=== PATIENT | female | born 1960 | race Caucasian/White ===

== ENCOUNTER 2016-12-19 08:55 | Emergency (ER) | payer OTHER ==
[~2016-12-19] VITALS: Ht 157.5 cm; Wt 74.8 kg
[~2016-12-19 08:55] MED LIST: NAPR220C4 PO; PANT40TA3 PO
[2016-12-19] MEDS ORDERED: IV NORMAL SALINE 1000ML BAG 1,000 ML IV SCH (09:49)
[2016-12-19] MEDS ORDERED: MORPHINE SULFATE 4 MG/ML DISP.SYRIN. IV/SQ PRN (10:00)
[2016-12-19] MEDS ORDERED: IOHEXOL 300 MG/ML 75 ML VIAL IV ONE (10:00)
[2016-12-19] MEDS ORDERED: FAMOTIDINE 20 MG/2 ML VIAL IVP ONE (10:00)
[2016-12-19] MEDS ORDERED: ONDANSETRON PF 4 MG/2 ML VIAL. IV ONE (10:00)
[2016-12-19 10:01] LABS: BILIRUBIN,URINE NEGATIVE (NEG); GLUCOSE,URINE NEGATIVE (NEG); NITRITE,URINE NEGATIVE (NEG); PH,URINE 6.5; PROTEIN,URINE NEGATIVE (NEG-TRACE); UROBILINOGEN,URINE 0.2 mg/dL (0.2 mg/dL)
--- NOTE | 2016-12-19 10:01 | PHYS DOC ---
Past Medical History Past Medical History: No Pertinent History Past Surgical History: Appendectomy, Cholecystectomy Alcohol Use: Occasionally Drug Use: None Adult General Chief Complaint Chief Complaint: BACK PAIN - NO INJURY HPI HPI Patient is a 56 year old female who presents with complaint of right-sided low back pain that started suddenly this morning. Patient states that the pain awoke her from sleep. Patient states that the pain is in her right lower back and radiates to her right thigh. Patient denies radiation below the knee. Patient rates her pain currently is 8 out of 10. Patient states that she had a history of low back pain several years ago but has not had any trouble recently. Patient denies any known injury. Patient also states that she has developed right lower quadrant pain, vomiting, and diarrhea with her symptoms. Patient denies any fevers. Patient states that she was recently treated for urinary tract infection one week ago. Patient took a full course of oral Levaquin for treatment. Patient denies any dysuria currently. Review of Systems Review of Systems Constitutional: Denies fever or chills [] Eyes: Denies change in visual acuity, redness, or eye pain [] HENT: Denies nasal congestion or sore throat [] Respiratory: Denies cough or shortness of breath [] Cardiovascular: Denies chest pain or edema [] GI: Abdominal pain, vomiting, diarrhea [] : Denies dysuria or hematuria [] Musculoskeletal: Low back pain [] Integument: Denies rash or skin lesions [] Neurologic: Denies headache, focal weakness or sensory changes [] Current Medications Current Medications Current Medications Medications (Trade) Dose Ordered Sig/Tanika Start Time Stop Time Status Last Admin Dose Admin Dexamethasone Sodium Phosphate (Decadron) 8 mg 1X ONCE 12/19/16 12:15 12/19/16 12:16 DC 12/19/16 12:25 8 MG Famotidine (Pepcid) 20 mg 1X ONCE 12/19/16 10:00 12/19/16 10:01 DC 12/19/16 10:08 20 MG Iohexol (Omnipaque 300 Mg/ml) 75 ml 1X ONCE 12/19/16 10:00 12/19/16 10:04 DC 12/19/16 10:53 75 ML Morphine Sulfate 4 mg 4 mg PRN Q15MIN PRN 12/19/16 10:00 12/19/16 13:22 DC 12/19/16 10:12 4 MG Ondansetron HCl (Zofran) 4 mg 1X ONCE 12/19/16 10:00 12/19/16 10:01 DC 12/19/16 10:06 4 MG Sodium Chloride (Iv Sodium Chloride 0.9% 1000ml Bag) 1,000 ml @ 1,000 mls/hr Q1H 12/19/16 09:49 12/19/16 10:48 DC 12/19/16 10:05 1,000 MLS/HR Allergies Allergies Allergies Coded Allergies Type Severity Reaction Last Updated Verified Sulfa (Sulfonamide Antibiotics) Allergy Unknown Hives 09/09/16 Yes Physical Exam Physical Exam Constitutional: Alert, afebrile, appears in moderate discomfort. [] HENT: Normocephalic, atraumatic, bilateral external ears normal, oropharynx moist, no oral exudates, nose normal. [] Eyes: PERRLA, EOMI, conjunctiva normal, no discharge. [] Neck: Normal range of motion, no tenderness, supple, no stridor. [] Cardiovascular:Heart rate regular rhythm, no murmur [] Lungs & Thorax: Bilateral breath sounds clear to auscultation [] Abdomen: Bowel sounds normal, soft, no tenderness, no masses, no pulsatile masses. [] Skin: Warm, dry, no erythema, no rash. [] Back: Right lower lumbar paraspinous muscle tenderness to palpation, no midline tenderness, no flank ecchymosis, no CVA tenderness. [] Extremities: No tenderness, no cyanosis, no clubbing, ROM intact, no edema. [] Neurologic: Alert and oriented X 3, normal motor function, normal sensory function, no focal deficits noted. [] Current Patient Data Vital Signs Vital Signs Date Time Temp Pulse Resp B/P Pulse Ox O2 Delivery O2 Flow Rate FiO2 12/19/16 12:30 107/68 96 Room Air 12/19/16 12:00 82 12/19/16 11:00 16 12/19/16 09:15 97.9 97.9 Lab Values Laboratory Tests Test 12/19/16 09:50 12/19/16 09:55 Urine Collection Type Unknown Urine Color Yellow Urine Clarity Clear Urine pH 6.5 Urine Specific [place] >=1.030 Urine Protein Negativemg/dL (NEG-TRACE) Urine Glucose (UA) Negativemg/dL (NEG) Urine Ketones (Stick) Tracemg/dL (NEG) Urine Blood Trace (NEG) Urine Nitrite Negative (NEG) Urine Bilirubin Negative (NEG) Urine Urobilinogen Dipstick 0.2mg/dL (0.2 mg/dL) Urine Leukocyte Esterase Negative (NEG) Urine RBC 3-5/HPF (0-2) Urine WBC 0/HPF (0-4) Urine Squamous Epithelial Cells Few/LPF Urine Bacteria 0/HPF (0-FEW) Urine Mucus Mod/LPF White Blood Count 8.3x10^3/uL (4.0-11.0) Red Blood Count 4.26x10^6/uL (3.50-5.40) Hemoglobin 13.1g/dL (12.0-15.5) Hematocrit 38.4% (36.0-47.0) Mean Corpuscular Volume 90fL (79-100) Mean Corpuscular Hemoglobin 31pg (25-35) Mean Corpuscular Hemoglobin Concent 34g/dL (31-37) Red Cell Distribution Width 13.1% (11.5-14.5) Platelet Count 292x10^3/uL (140-400) Neutrophils (%) (Auto) 85% (31-73) H Lymphocytes (%) (Auto) 12% (24-48) L Monocytes (%) (Auto) 3% (0-9) Eosinophils (%) (Auto) 0% (0-3) Basophils (%) (Auto) 1% (0-3) Neutrophils # (Auto) 7.0x10^3uL (1.8-7.7) Lymphocytes # (Auto) 1.0x10^3/uL (1.0-4.8) Monocytes # (Auto) 0.2x10^3/uL (0.0-1.1) Eosinophils # (Auto) 0.0x10^3/uL (0.0-0.7) Basophils # (Auto) 0.0x10^3/uL (0.0-0.2) Sodium Level 140mmol/L (136-145) Potassium Level 4.1mmol/L (3.5-5.1) Chloride Level 104mmol/L (98-107) Carbon Dioxide Level 27mmol/L (21-32) Anion Gap 9 (6-14) Blood Urea Nitrogen 17mg/dL (7-20) Creatinine 0.8mg/dL (0.6-1.0) Estimated GFR (Cockcroft-Gault) 74.2 BUN/Creatinine Ratio 21 (6-20) H Glucose Level 122mg/dL (70-99) H Calcium Level 9.1mg/dL (8.5-10.1) Total Bilirubin 0.4mg/dL (0.2-1.0) Aspartate Amino Transferase (AST) 27U/L (15-37) Alanine Aminotransferase (ALT) 31U/L (14-59) Alkaline Phosphatase 82U/L (46-116) Total Protein 7.7g/dL (6.4-8.2) Albumin 3.8g/dL (3.4-5.0) Albumin/Globulin Ratio 1.0 (1.0-1.7) Lipase 118U/L (73-393) Laboratory Tests 12/19/16 09:55 Laboratory Tests 12/19/16 09:55 EKG EKG Not performed [] Radiology/Procedures Radiology/Procedures [facility] [address] [place] [address] IMAGING REPORT Signed PATIENT: UMA SEGAL ACCOUNT: [id number] : 1960 LOCATION: ER AGE: 56 SEX: F EXAM STATUS: REG ER ORD. PHYSICIAN: ORIN GAONA MD REASON: right lower quadrant abdominal pain PROCEDURE: ABD PELV W/ IV CONTRAST ONLY CT of the abdomen and pelvis with contrast, 12/19/2016: History: Right lower quadrant pain, nausea and vomiting Multidetector CT imaging was performed following an IV bolus injection of iodinated contrast material. No oral contrast material was administered for this study. The gallbladder is surgically absent. The liver is unremarkable. No pancreatic abnormality is seen. The spleen is of normal size. No renal or adrenal abnormality is detected. The abdominal aorta is unremarkable. No abdominal or pelvic adenopathy is seen. The uterus is unremarkable. The bowel loops are not dilated. The appendix is visualized and shows no abnormality. Diffuse mural thickening involving the proximal gastric burger is noted. Lack of gastric distention is probably contributing to this appearance. No free fluid or free air is evident in the abdomen or pelvis. IMPRESSION: 1. Probable gastric mural thickening suggesting nonspecific gastritis. 2. No evidence of acute appendicitis. DICTATED and SIGNED BY: FABIO GEORGE MD DATE: 12/19/16 1107 CC: ORIN GAONA MD; RICH ROJO MD ~ [] Course & Med Decision Making Course & Med Decision Making Pertinent Labs and Imaging studies reviewed. (See chart for details) Patient was given IV morphine, Zofran, and IV fluids. On reevaluation, patient states her symptoms have improved at this time. Patient's symptoms appear to be primarily due to acute musculoskeletal pain likely due to degenerative changes at L5 and S1 as seen on the CT scan. The patient will be started on oral Decadron for reduction of inflammation at home. The patient was offered hydrocodone, however she stated that this medication makes her feel sick and she would like to take Decadron instead. Advised patient to follow-up with primary doctor in 2-3 days and return to emergency department for any worsening symptoms. Patient voiced understanding and in agreement with treatment plan. Dragon Disclaimer Dragon Disclaimer This electronic medical record was generated, in whole or in part, using a voice recognition dictation system. Departure Departure Impression: Primary Impression: Acute low back pain Disposition: HOME, SELF-CARE Condition: IMPROVED Referrals: RICH ROJO MD (PCP) Patient Instructions: Back Pain, Adult Additional Instructions: Follow-up with your primary doctor in 5-7 days. Return to the emergency department for any worsening symptoms. Scripts Dexamethasone 4 Mg Tablet4 Tab PO BID #10 TAB Prov:ORIN GAONA MD 12/19/16 Problem Qualifiers Primary Impression: Acute low back pain Back pain laterality: right Sciatica presence: with sciatica Sciatica laterality: sciatica of right side Qualified Code: M54.41 - Lumbago with sciatica, right side ORIN GAONA MD Dec 19, 2016 10:01
[2016-12-19 10:03] LABS: BASO % 1 % (0-3); EOS % 0 % (0-3); HEMATOCRIT 38.4 % (36.0-47.0); HEMOGLOBIN 13.1 g/dL (12.0-15.5); LYMPH % 12 % (24-48); MEAN CORPUSCULAR HEMOGLOBIN 31 pg (25-35); MEAN CORPUSCULAR HGB CONC 34 g/dL (31-37); MEAN CORPUSCULAR VOLUME 90 fL (79-100); MONO % 3 % (0-9); NEUT % 85 % (31-73); PLATELET COUNT 292 x10^3/uL (140-400); RED BLOOD COUNT 4.26 x10^6/uL (3.50-5.40); RED CELL DISTRIBUTION WIDTH 13.1 % (11.5-14.5); WHITE BLOOD COUNT 8.3 x10^3/uL (4.0-11.0)
[2016-12-19 10:24] LABS: BACTERIA,URINE 0 /HPF (0-FEW); SQUAMOUS EPITHELIAL CELL,UR FEW /LPF; WBC,URINE 0 /HPF (0-4)
[2016-12-19 10:34] LABS: CALCIUM 9.1 mg/dL (8.5-10.1); CREATININE 0.8 mg/dL (0.6-1.0); GFR 74.2; POTASSIUM 4.1 mmol/L (3.5-5.1)
[2016-12-19 10:41] LABS: ALBUMIN 3.8 g/dL (3.4-5.0); TOTAL BILIRUBIN 0.4 mg/dL (0.2-1.0); TOTAL PROTEIN 7.7 g/dL (6.4-8.2)
--- NOTE | 2016-12-19 11:15 | RAD ---
CT of the abdomen and pelvis with contrast, 12/19/2016: History: Right lower quadrant pain, nausea and vomiting Multidetector CT imaging was performed following an IV bolus injection of iodinated contrast material. No oral contrast material was administered for this study. The gallbladder is surgically absent. The liver is unremarkable. No pancreatic abnormality is seen. The spleen is of normal size. No renal or adrenal abnormality is detected. The abdominal aorta is unremarkable. No abdominal or pelvic adenopathy is seen. The uterus is unremarkable. The bowel loops are not dilated. The appendix is visualized and shows no abnormality. Diffuse mural thickening involving the proximal gastric burger is noted. Lack of gastric distention is probably contributing to this appearance. No free fluid or free air is evident in the abdomen or pelvis. IMPRESSION: 1. Probable gastric mural thickening suggesting nonspecific gastritis. 2. No evidence of acute appendicitis.
[2016-12-19] MEDS ORDERED: DEXAMETHASONE SOD PHOS 4 MG/ML VIAL IV ONE (12:15)
[2016-12-19] MEDS ORDERED: DEXA4TAB PO (12:16)
[2016-12-19 12:30] VITALS: BP 107/68
== END 2016-12-19 13:20 | disposition home or self-care (01) ==
LOC: ER 08:55
DX: M54.5 Low back pain (principal); R10.31 Right lower quadrant pain; R19.7 Diarrhea, unspecified; R11.10 Vomiting, unspecified; Z90.49 Acquired absence of other specified parts of digestive tract; Z88.2 Allergy status to sulfonamides
CPT/HCPCS: 36415; 74177; 80053; 81001; 83690; 85027; 96361; 96374; 96375; 99285; J1100; J2270; J2405; J7030; Q9967; S0028

== ENCOUNTER → 2017-04-18 | Outpatient (CLI) | payer OTHER ==
[~2017-04-18] MED LIST changes: +DEXA4TAB PO
[2017-04-18 08:15] LABS: BASO # 0.1 x10^3/uL (0.0-0.2); BASO % 1 % (0-3); EOS % 2 % (0-3); HEMATOCRIT 38.6 % (36.0-47.0); HEMOGLOBIN 12.9 g/dL (12.0-15.5); LYMPH # 2.4 x10^3/uL (1.0-4.8); LYMPH % 32 % (24-48); MEAN CORPUSCULAR HEMOGLOBIN 31 pg (25-35); MEAN CORPUSCULAR HGB CONC 34 g/dL (31-37); MEAN CORPUSCULAR VOLUME 93 fL (79-100); MONO % 5 % (0-9); NEUT % 61 % (31-73); PLATELET COUNT 330 x10^3/uL (140-400); RED BLOOD COUNT 4.15 x10^6/uL (3.50-5.40); RED CELL DISTRIBUTION WIDTH 12.7 % (11.5-14.5)
[2017-04-18 08:19] LABS: WHITE BLOOD COUNT 7.5 x10^3/uL (4.0-11.0)
[2017-04-18 08:29] LABS: ALBUMIN 3.5 g/dL (3.4-5.0); ALBUMIN/GLOBULIN RATIO 0.9 (1.0-1.7); CALCIUM 8.7 mg/dL (8.5-10.1); GFR 57.4; POTASSIUM 4.3 mmol/L (3.5-5.1); TOTAL BILIRUBIN 0.4 mg/dL (0.2-1.0); TOTAL PROTEIN 7.4 g/dL (6.4-8.2)
[2017-04-18 08:31] LABS: CHOLESTEROL/HDL RATIO 4.3
[2017-04-18 08:39] LABS: FREE T4 0.91 ng/dL (0.76-1.46)
== END | disposition home or self-care (01) ==
LOC: LAB 07:52
PROVIDERS: ATTEND Physician Assistant
DX: Z13.220 Encounter for screening for lipoid disorders (principal); L65.9 Nonscarring hair loss, unspecified; F41.8 Other specified anxiety disorders
CPT/HCPCS: 36415; 80053; 80061; 84439; 84443; 85027

== ENCOUNTER → 2017-06-30 | Outpatient (CLI) | payer OTHER ==
--- NOTE | 2017-06-30 13:07 | RAD ---
DATE: 06/30/2017 EXAM: DIGITAL SCREEN BILAT W/CAD HISTORY: Screening study. COMPARISON: 10/30/2015 This study was interpreted with the benefit of Computerized Aided Detection (CAD). FINDINGS: Digital MLO and CC mammograms of both breasts were obtained. Comparison study is dated 06/30/2017. The breast parenchyma is composed of scattered fibroglandular densities which can obscure a lesion on mammography (breast density code B). A localizing clip is seen within the upper outer quadrant of the right breast, unchanged. Benign-appearing calcifications are seen within both breasts. No dominant mass is seen. An area of scarring is seen within the upper quadrant of the right breast, unchanged. No new area of architectural distortion is noted. Since the previous examination there has been no significant interval change. IMPRESSION: BI-RADS Category 2 benign findings. There is no mammographic evidence of malignancy. Routine yearly screening mammography is recommended for follow-up. BI-RADS CATEGORY: 2 BENIGN FINDING(S) RECOMMENDED FOLLOW-UP: 12M 12 MONTH FOLLOW-UP PQRS compliance statement: Patient information was entered into a reminder system with a target due date 06/30/2018 for the next mammogram. Mammography is a sensitive method for finding small breast cancers, but it does not detect them all and is not a substitute for careful clinical examination. A negative mammogram does not negate a clinically suspicious finding and should not result in delay in biopsying a clinically suspicious abnormality. "Our facility is accredited by the [employer] Mammography Program."
== END | disposition home or self-care (01) ==
LOC: MAMMO 10:22
PROVIDERS: ATTEND Family Medicine
DX: Z12.31 Encounter for screening mammogram for malignant neoplasm of breast (principal)
CPT/HCPCS: G0202; 77067

== ENCOUNTER → 2018-07-08 | Outpatient (CLI) | payer OTHER ==
--- NOTE | 2018-07-10 10:41 | RAD ---
DATE: 07/08/2018 EXAM: MAMMO ASCENCION SCREENING BILATERAL HISTORY: Routine screening COMPARISON: 06/30/2017, 10/30/2015, 08/19/2014, 03/10/2013 Bilateral CC and MLO views of the breasts were performed. Bilateral breast tomosynthesis was performed in CC and MLO projections. This study was interpreted with the benefit of Computerized Aided Detection (CAD). The breast parenchyma shows scattered fibroglandular densities. Breast parenchyma level B. FINDINGS: A clip is seen within the right breast, stable. No suspicious masses, microcalcifications or architectural distortion is present to suggest malignancy in either breast. The visualized axillae are unremarkable. IMPRESSION: No mammographic evidence of malignancy. BI-RADS CATEGORY: 2 BENIGN FINDING(S) RECOMMENDED FOLLOW-UP: 12M 12 MONTH FOLLOW-UP. Annual screening mammography is recommended, unless clinically indicated sooner based on symptoms or change in physical exam. PQRS compliance statement: Patient information was entered into a reminder system with a target due date for the next mammogram. Mammography is a sensitive method for finding small breast cancers, but it does not detect them all and is not a substitute for careful clinical examination. A negative mammogram does not negate a clinically suspicious finding and should not result in delay in biopsying a clinically suspicious abnormality. "Our facility is accredited by the [employer] Mammography Program."
== END | disposition home or self-care (01) ==
LOC: MAMMO 08:59
PROVIDERS: ATTEND Family Medicine
DX: Z12.31 Encounter for screening mammogram for malignant neoplasm of breast (principal); E78.5 Hyperlipidemia, unspecified; E03.9 Hypothyroidism, unspecified; Z90.49 Acquired absence of other specified parts of digestive tract
CPT/HCPCS: 77063; 77067

== ENCOUNTER → 2018-09-21 | Outpatient (CLI) | payer OTHER ==
[2018-09-21 09:54] LABS: BASO % 1 % (0-3); EOS # 0.1 x10^3/uL (0.0-0.7); EOS % 1 % (0-3); HEMATOCRIT 39.6 % (36.0-47.0); HEMOGLOBIN 13.6 g/dL (12.0-15.5); LYMPH # 2.3 x10^3/uL (1.0-4.8); LYMPH % 35 % (24-48); MEAN CORPUSCULAR HEMOGLOBIN 32 pg (25-35); MEAN CORPUSCULAR HGB CONC 34 g/dL (31-37); MEAN CORPUSCULAR VOLUME 92 fL (79-100); MONO # 0.3 x10^3/uL (0.0-1.1); MONO % 5 % (0-9); NEUT # 3.9 x10^3uL (1.8-7.7); NEUT % 59 % (31-73); PLATELET COUNT 308 x10^3/uL (140-400); RED BLOOD COUNT 4.32 x10^6/uL (3.50-5.40); RED CELL DISTRIBUTION WIDTH 12.3 % (11.5-14.5); WHITE BLOOD COUNT 6.6 x10^3/uL (4.0-11.0)
[2018-09-21 10:15] LABS: ALBUMIN 3.7 g/dL (3.4-5.0); ALBUMIN/GLOBULIN RATIO 0.9 (1.0-1.7); CALCIUM 9.6 mg/dL (8.5-10.1); CREATININE 0.9 mg/dL (0.6-1.0); GFR 64.3; POTASSIUM 4.4 mmol/L (3.5-5.1); TOTAL BILIRUBIN 0.3 mg/dL (0.2-1.0); TOTAL PROTEIN 7.6 g/dL (6.4-8.2)
[2018-09-21 10:18] LABS: CHOLESTEROL/HDL RATIO 3.7
== END | disposition home or self-care (01) ==
LOC: LAB 09:21
PROVIDERS: ATTEND Family Medicine
DX: Z13.220 Encounter for screening for lipoid disorders (principal)
CPT/HCPCS: 36415; 80053; 80061; 84443; 85025

== ENCOUNTER → 2019-01-12 | Outpatient (CLI) | payer OTHER ==
--- NOTE | 2019-01-12 15:33 | RAD ---
Right knee, 3 views, 01/12/2019: HISTORY: Knee pain No fracture or dislocation is identified. No significant arthritic change is evident. The periarticular soft tissues are unremarkable. IMPRESSION: No significant right knee abnormality is detected. Electronically signed by: Edgar Hale MD (01/12/2019 3:30 PM) [facility]
== END | disposition home or self-care (01) ==
LOC: LAB 11:31
PROVIDERS: ATTEND Family Medicine
DX: M25.561 Pain in right knee (principal)
CPT/HCPCS: 73562

== ENCOUNTER → 2019-01-27 | Outpatient (CLI) | payer OTHER ==
[~2019-01-27] MED LIST changes: +FAMO-63 PO
--- NOTE | 2019-01-27 10:57 | RAD ---
EXAM: MRI RIGHT KNEE DATE: 01/27/2019 9:45 AM CLINICAL INDICATION: RIGHT MEDIAL KNEE PAIN X 1 MONTH AFTER AWKWARD TWISTING COMPARISON: Right knee radiographs 01/12/2019 TECHNIQUE: Multiplanar, multisequence MRI of the right knee was performed without contrast. FINDINGS: No knee joint effusion. Trace Khan's cyst. The ACL and PCL are intact. The MCL, fibular collateral ligament, biceps femoris and IT band are intact. The popliteus is normal in signal and morphology also intact. Extensor mechanism is intact. Neutral patellar tracking. Medial meniscus: No discrete medial meniscal tear is seen. Lateral meniscus: Lateral meniscus is intact. Intermittent chondral fissuring at the weightbearing surface of the medial femoral condyle with focal subchondral edema. Otherwise, mild diffuse chondral thinning without discrete full-thickness cartilage defect. There is diffuse marrow edema at the medial tibial plateau without discrete fracture line, likely bone contusion. Overlying anteromedial soft tissue swelling is also seen. IMPRESSION: 1. Diffuse marrow edema within the medial tibial plateau, possibly bone contusion, with subcutaneous soft tissue edema overlying the anteromedial right knee. 2. Intermittent chondral fissuring with focal marrow edema/cystic change at the central aspect of the medial tibial plateau likely degenerative. Electronically signed by: Jose Lim MD (01/27/2019 10:54 AM) [id number]
== END | disposition home or self-care (01) ==
LOC: MRI 09:22
PROVIDERS: ATTEND Family Medicine
DX: R22.41 Localized swelling, mass and lump, right lower limb (principal)
CPT/HCPCS: 73721

== ENCOUNTER → 2019-03-19 | Day surgery (SDC) | payer OTHER ==
[~2019-03-19] MED LIST changes: +HYDROmorphone 2 MG/ML VIAL IV PRN; +IV RINGERS,LACTATED 1000ML 1,000 ML IV SCH; +LIDOCAINE 2% PF 5 ML VIAL. ONE; +MORPHINE SULFATE 2 MG/ML VIAL. IV PRN; +ONDANSETRON PF 4 MG/2 ML VIAL. IV PRN; +PROCHLORPERAZINE 10 MG/2 ML VIAL. IV PRN; +PROPOFOL 40 ML IV ONE; +fentaNYL PF VIAL 100 MCG/2 ML VIAL IV PRN
[2019-03-19 08:26] VITALS: BP 105/66
== END | disposition home or self-care (01) ==
LOC: ENDOS 06:34
PROVIDERS: ATTEND Internal Medicine Gastroenterology
DX: Z12.11 Encounter for screening for malignant neoplasm of colon (principal); K64.0 First degree hemorrhoids; K22.2 Esophageal obstruction; K21.9 Gastro-esophageal reflux disease without esophagitis; Z88.2 Allergy status to sulfonamides; M19.90 Unspecified osteoarthritis, unspecified site; Z83.71 Family history of colonic polyps; Z82.49 Family history of ischemic heart disease and other diseases of the circulatory system; Z72.89 Other problems related to lifestyle; Z79.899 Other long term (current) drug therapy; Z90.49 Acquired absence of other specified parts of digestive tract; Z98.890 Other specified postprocedural states
CPT/HCPCS: 43235; 43450; 45378; J2001; J2704

== ENCOUNTER → 2019-04-28 | Outpatient (CLI) | payer OTHER ==
[2019-03-19 08:26] VITALS: BP 105/66
[~2019-04-28] MED LIST changes: -HYDROmorphone 2 MG/ML VIAL IV PRN; -IV RINGERS,LACTATED 1000ML 1,000 ML IV SCH; -LIDOCAINE 2% PF 5 ML VIAL. ONE; -MORPHINE SULFATE 2 MG/ML VIAL. IV PRN; -ONDANSETRON PF 4 MG/2 ML VIAL. IV PRN; -PROCHLORPERAZINE 10 MG/2 ML VIAL. IV PRN; -PROPOFOL 40 ML IV ONE; -fentaNYL PF VIAL 100 MCG/2 ML VIAL IV PRN
[2019-04-28 10:56] LABS: BASO # 0.1 x10^3/uL (0.0-0.2); BASO % 1 % (0-3); EOS # 0.1 x10^3/uL (0.0-0.7); EOS % 2 % (0-3); HEMATOCRIT 38.8 % (36.0-47.0); HEMOGLOBIN 13.4 g/dL (12.0-15.5); LYMPH # 2.4 x10^3/uL (1.0-4.8); LYMPH % 36 % (24-48); MEAN CORPUSCULAR HEMOGLOBIN 32 pg (25-35); MEAN CORPUSCULAR HGB CONC 35 g/dL (31-37); MEAN CORPUSCULAR VOLUME 92 fL (79-100); MONO # 0.4 x10^3/uL (0.0-1.1); MONO % 6 % (0-9); NEUT # 3.6 x10^3uL (1.8-7.7); NEUT % 55 % (31-73); PLATELET COUNT 296 x10^3/uL (140-400); RED BLOOD COUNT 4.22 x10^6/uL (3.50-5.40); RED CELL DISTRIBUTION WIDTH 12.3 % (11.5-14.5); WHITE BLOOD COUNT 6.6 x10^3/uL (4.0-11.0)
[2019-04-28 11:18] LABS: FREE T4 1.01 ng/dL (0.76-1.46); THYROID STIM HORMONE (TSH) 2.424 uIU/mL (0.358-3.74)
== END | disposition home or self-care (01) ==
LOC: LAB 10:27
PROVIDERS: ATTEND Internal Medicine
DX: L60.1 Onycholysis (principal); K21.9 Gastro-esophageal reflux disease without esophagitis
CPT/HCPCS: 36415; 82306; 82728; 83540; 83550; 84439; 84443; 85025

== ENCOUNTER → 2019-07-22 | Outpatient (CLI) | payer OTHER ==
[2019-03-19 08:26] VITALS: BP 105/66
[~2019-07-22] MED LIST changes: -PANT40TA3 PO; +PANT40TA77 PO
[2019-07-22 10:47] LABS: ALBUMIN 3.8 g/dL (3.4-5.0); CALCIUM 9.1 mg/dL (8.5-10.1); GFR 56.9; POTASSIUM 4.3 mmol/L (3.5-5.1); TOTAL BILIRUBIN 0.3 mg/dL (0.2-1.0); TOTAL PROTEIN 7.6 g/dL (6.4-8.2)
== END | disposition home or self-care (01) ==
LOC: LAB 10:19
PROVIDERS: ATTEND Family Medicine
DX: R07.9 Chest pain, unspecified (principal); E78.2 Mixed hyperlipidemia
CPT/HCPCS: 36415; 80053; 80061; 84484

== ENCOUNTER → 2019-07-28 | Outpatient (CLI) | payer OTHER ==
[2019-03-19 08:26] VITALS: BP 105/66
--- NOTE | 2019-07-28 13:52 | RAD ---
LUMBAR SPINE WO CONTRAST History: Low back pain. Worsening right leg radiculopathy. Technique: Multiplanar, multi sequential MR imaging was performed of the lumbar spine. Comparison: None Findings: Normal vertebral body height and alignment. No fracture. Conus terminates at the normal location. No evidence of nerve root clumping. L1-L2: No canal or neuroforaminal narrowing. L2-L3: Minimal posterior disc bulge. No canal or neuroforaminal narrowing. L3-L4: Minimal posterior disc bulge. Mild facet arthropathy. No canal or neuroforaminal narrowing. L4-L5: Minimal posterior disc bulge. Mild facet arthropathy. No canal or neuroforaminal narrowing. L5-S1: Posterior disc bulge with right subarticular annular fissure and right foraminal disc protrusion contacting the exiting right L5 nerve root. Moderate facet arthropathy. No canal narrowing. Mild bilateral neural foraminal narrowing. Impression: 1. Mild multilevel lumbar spondylosis most prominent L5-S1. 2. Right L5-S1 small foraminal disc protrusion contacting the exiting right L5 nerve root, correlate for radiculopathy. Mild bilateral L5 neural foraminal narrowing. Electronically signed by: Maycol Chacko DO (07/28/2019 1:49 PM) [facility]
== END | disposition home or self-care (01) ==
LOC: MRI 09:31
PROVIDERS: ATTEND Family Medicine
DX: M47.27 Other spondylosis with radiculopathy, lumbosacral region (principal); M48.061 Spinal stenosis, lumbar region without neurogenic claudication; M51.17 Intervertebral disc disorders with radiculopathy, lumbosacral region; M12.88 Other specific arthropathies, not elsewhere classified, other specified site
CPT/HCPCS: 72148

== ENCOUNTER → 2019-08-12 | Outpatient (CLI) | payer OTHER ==
[2019-03-19 08:26] VITALS: BP 105/66
--- NOTE | 2019-08-13 10:35 | RAD ---
DATE: 08/12/2019 9:30 AM EXAM: MAMMO ASCENCION SCREENING BILATERAL HISTORY: routine screening evaluation. COMPARISON: 07/08/2018, 06/30/2017, 10/30/2015 Bilateral CC and MLO views of the breasts were performed. Bilateral breast tomosynthesis was performed in CC and MLO projections. This study was interpreted with the benefit of Computerized Aided Detection (CAD). FINDINGS: Breast Density: SCATTERED The breast parenchyma shows scattered fibroglandular densities. Breast parenchyma level B The parenchymal pattern appears stable. Benign calcifications are present. No suspicious masses, microcalcifications or architectural distortion is present to suggest malignancy in either breast. The visualized axillae are unremarkable. IMPRESSION: No mammographic evidence of malignancy. BI-RADS CATEGORY: 2 BENIGN FINDING(S) RECOMMENDED FOLLOW-UP: 12M 12 MONTH FOLLOW-UP Annual screening mammography is recommended, unless clinically indicated sooner based on symptoms or change in physical exam. PQRS compliance statement: Patient information was entered into a reminder system with a target due date for the next mammogram. Mammography is a sensitive method for finding small breast cancers, but it does not detect them all and is not a substitute for careful clinical examination. A negative mammogram does not negate a clinically suspicious finding and should not result in delay in biopsying a clinically suspicious abnormality. "Our facility is accredited by the [employer] Mammography Program."
== END | disposition home or self-care (01) ==
LOC: MAMMO 09:30
PROVIDERS: ATTEND Family Medicine
DX: Z12.31 Encounter for screening mammogram for malignant neoplasm of breast (principal); N64.89 Other specified disorders of breast
CPT/HCPCS: 77063; 77067

== ENCOUNTER → 2019-08-18 | Outpatient (CLI) | payer OTHER ==
[2019-03-19 08:26] VITALS: BP 105/66
[~2019-08-18] MED LIST changes: +CYCL10TA2 PO; +HYDR-3164 PO; +IOHEXOL 180 MG/ML 10 ML VIAL. ONE; +KRIL1CAP10 PO; +MULT1TAB52 PO; +methylPREDNISolone ACETATE 40 MG/ML VIAL. ONE; +methylPREDNISolone ACETATE 80 MG/ML VIAL. ONE
--- NOTE | 2019-08-19 00:16 | PAIN ---
DATE OF SERVICE: 08/18/2019 INITIAL CONSULTATION FOR PAIN CLINIC CHIEF COMPLAINT: Low back and right lower extremity pain. HISTORY OF PRESENT ILLNESS: This is a 59-year-old female who presents with history of pain for about 5-6 years, increasing in the low back and right lower extremity, worse over the past 1 year. The patient reports the first time she gets out of bed in the morning, the pain is at its worst when she first puts weight on her leg in the right low back radiating to posterior gluteus, posterior thigh, posterior calf as well as the lateral anterior thigh at times as well. The patient reports it is sharp, stabbing, intermittent in intensity, better during the day when she is up and walking around, but when she first gets out of bed, it is much more excruciating. The patient reports it has been getting worse over the year, has had some physical therapy done in the past as well as putting ice on the low back and epidural injections years ago, which she reports did help. Chiropractor treatment also is helpful as well, but it has been several years. The patient is taking Flexeril as well as [place], both of which decrease the pain and help her sleep by about 50%. The patient had an MRI scan of the lumbar spine dated 07/28/2019 showing multilevel lumbar spondylosis, most prominent at L5-S1 with posterior disc bulge at L5-S1 with right foraminal disc protrusion contacting the exiting right L5 nerve root with mild bilateral neural foraminal narrowing. The patient rates her disability from 0-10, 10 being the worst, at its 5 with family and home responsibilities, recreational and social activities, occupation and sexual behavior, self-care and life support activities. The patient reports no loss of motor function, but significant fatigability of the right leg with standing, and especially first thing in the morning. PAST MEDICAL HISTORY: Significant for only previous C-sections and a cholecystectomy, otherwise the patient has been in fairly good health. CURRENT MEDICATIONS: Include Flexeril, Dublin, Krill oil, multivitamins, and Protonix. ALLERGIES: THE PATIENT IS ALLERGIC TO SULFA, WHICH CAUSES HIVES. FAMILY HISTORY: Significant for heart disease and cancers. SOCIAL HISTORY: The patient drinks alcohol about 1 drink a week, does not smoke. Denies any illegal, illicit, or recreational drugs. She is , lives with her spouse, lives locally [place], [place]. Works as a registered nurse on the obstetric floor. REVIEW OF SYSTEMS: The patient's review of systems is positive for those items mentioned in history of present illness. All systems reviewed and otherwise negative. It is complete, full and well documented on the patient's chart. PHYSICAL EXAMINATION: VITAL SIGNS: The patient's blood pressure is 121/79, pulse 91, respirations 16, temperature 98.7 degrees Fahrenheit, height is 5 feet 2 inches, weight is 170 pounds. GENERAL: The patient is awake, alert, oriented, appropriate, very pleasant demeanor. HEENT: Shows normocephalic, atraumatic. Extraocular movements are intact and symmetrical. Oral cavity, mucous membranes moist and pink. Dentition is intact. NECK: Shows anterior throat supple without palpable lymphadenopathy noted. Swallow reflex symmetrical. CHEST: Shows normal on inspection. Breath sounds are clear to auscultation bilaterally. HEART: Shows S1 and S2 clear. No murmurs auscultated. ABDOMEN: Soft, nontender, and nondistended. No palpable organomegaly is noted. No rebound or guarding demonstrated. BACK: Shows spine grossly in the midline. Normal-appearing thoracic kyphosis and lumbar lordotic curvature. Lumbar paraspinous muscle shows symmetrical on inspection, with palpation shows some moderate tenderness diffusely, but only diffusely without radiation. EXTREMITIES: The patient's lower extremities show deep tendon reflexes at 2+, patellar 1+, and tendo-calcaneus tendons are equal. Motor exam is strong with 5/5 dorsiflexion and extension. Quadriceps and hamstring flexion are symmetrical. Peripheral pulses are 1+ posterior tibial. No peripheral edema is noted. Straight leg raise is noted to be mildly positive on the right at about 45 degrees, decreased with knee flexion, left side is negative. Gaenslen's and Andrew's maneuvers are negative bilaterally. The patient is able to stand, stand on her toes without significant difficulty or loss of balance, walks with a normal-appearing gait for short distance in the office today, not using any assistive devices to ambulate. IMPRESSION: 1. This is a 59-year-old female with a long history of low back and right lower extremity pain, worse over the past year. 2. MRI scan of the lumbar spine as noted. PLAN: Options were discussed with the patient including conservative medical managements, physical therapies, and interventional techniques and she would like to pursue interventional techniques. We discussed a lumbar epidural steroid injection using description as well as anatomical models to describe the procedure. Risks were then discussed including, but not limited to bleeding, infection, possibility of epidural hematoma, subsequent neurological compromise, dural puncture, headaches, spinal cord and/or nerve damage, side effects of steroid medication and poor results regarding pain control. The patient understands and wished to proceed. The patient will return to clinic in approximately 2 weeks for followup. She was counseled on return appointment, activity level, and side effects to be aware of. DIAGNOSES: Lumbar radiculopathy with lumbar degenerative disc disease. PROCEDURE: Lumbar epidural steroid injection, translaminar approach at the L5-S1 level using a C-arm fluoroscopic guidance under sterile prep and drape using local anesthetic. MEDICATION INJECTED: A total of 120 mg Depo-Medrol plus 10 mL of preservative-free normal saline and 2 mL of contrast. CONDITION AT DISCHARGE: Stable. The patient tolerated the procedure well, had no complications. MARK RODAS MD DR: FINN/blue JOB#: [id number] / [id number]
== END ==
LOC: PNCL 12:50
PROVIDERS: ATTEND Anesthesiology
DX: M51.16 Intervertebral disc disorders with radiculopathy, lumbar region (principal); Z90.49 Acquired absence of other specified parts of digestive tract; Z88.1 Allergy status to other antibiotic agents; Z72.89 Other problems related to lifestyle
CPT/HCPCS: 62323; J1030; J1040; Q9965

== ENCOUNTER → 2019-09-06 | Outpatient (CLI) | payer OTHER ==
[2019-03-19 08:26] VITALS: BP 105/66
[~2019-09-06] MED LIST changes: +BUPIVACAINE MPF 0.25% 10 ML VIAL. ONE; -methylPREDNISolone ACETATE 40 MG/ML VIAL. ONE
--- NOTE | 2019-09-06 09:05 | PAIN ---
DATE OF SERVICE: 09/06/2019 PROGRESS NOTE FOR PAIN CLINIC DIAGNOSIS: Lumbar radiculopathy with lumbar degenerative disk disease. HISTORY OF PRESENT ILLNESS: The patient is a 59-year-old female who returns for followup status post lumbar epidural steroid injection x 1. The patient reports no significant improvement in pain. We spoke with her neurosurgeon as well as the patient and would like to try a right L5-S1 transforaminal injection to better focus the symptomatic nerve root, which is impinged on her MRI scan of the right L5-S1. The patient returns today for procedure. Describes the pain as a 10 on a scale of 10 at its worst over the past week, 7 on average, 5 at its least and is a 10 today. The patient reports it is very difficult to bear weight on her right leg. She is having difficulty even putting her clothes on. The patient reports the pain is sharp, burning, stabbing, unbearable in the right hip, posterior gluteus, posterolateral thigh, anterior thigh and posterior thigh on the right side only, again worse with weightbearing, standing waking from sleep at least every 4 hours. The patient reports no new motor or sensory deficits, no new bowel or bladder incontinence. PHYSICAL EXAMINATION: VITAL SIGNS: The patient's blood pressure is 124/81, pulse 98, respirations 18, temperature 97.8 degrees Fahrenheit, height is 5 feet 2 inches, weight is 168 pounds. GENERAL: The patient is awake, alert, oriented, appropriate, very pleasant demeanor. HEENT: Normocephalic, atraumatic. Extraocular movements are intact and symmetrical. Oral cavity: Mucous membranes moist and pink. Dentition is intact. NECK: Shows anterior throat supple without palpable lymphadenopathy noted. Swallow reflex symmetrical. CHEST: Shows normal on inspection. Breath sounds clear to auscultation bilaterally. HEART: Shows S1, S2 clear. No murmurs auscultated. ABDOMEN: Soft, nontender, nondistended. No palpable organomegaly is noted. No rebound or guarding demonstrated. BACK: Shows spine grossly in the midline. Normal appearing thoracic kyphosis and lumbar lordotic curvature. Lumbar paraspinous muscle shows symmetrical on inspection, on palpation shows some moderate tenderness diffusely, but only diffusely without radiation. The patient has good rotational motion of lumbar spine bilaterally as well as extension and flexion without difficulty. EXTREMITIES: Lower extremities show deep tendon reflexes 2+ in the patellar and 1+ tendo-calcaneus tendons. Motor exam is 5 on a scale of 5 with dorsiflexion and extension. The patient has significant tenderness with putting weight on her right leg; however, she is walking with a significant limp favoring the right lower extremity significantly. Quadriceps and hamstring flexion on the right is significantly painful, but intact. Peripheral pulses are 1+ posterior tibia. No peripheral edema is noted. Options were discussed with the patient. The patient's old chart was reviewed as her current medication regimen updated. Current review of systems updated today as well. We will proceed with a right L5-S1 transforaminal injection today with fluoroscopic guidance. Risks were again discussed including but not limited to bleeding, infection, possibility of epidural hematoma, subsequent neurological compromise, dural puncture, headaches, spinal cord and/or nerve damage, side effects of steroid medication, potential injection of the vertebral artery at that level and permanent ischemic damage as well as poor results regarding pain control. The patient understands and wished to proceed. The patient will return to clinic in approximately 2 weeks for followup. She was counseled as to return appointment, activity level and side effects to be aware of. DIAGNOSIS: Lumbar radiculopathy with lumbar degenerative disk disease. PROCEDURE: Lumbar transforaminal epidural injection at L5-S1 on the right using C-arm fluoroscopic guidance under sterile prep and drape using local anesthetic. MEDICATION INJECTED: A total of 80 mg Depo-Medrol plus 2 mL of 0.25% bupivacaine, 1.5 mL of contrast with good spread medially into the epidural space as well as laterally along the L5-S1 nerve root, no uptake with digital subtraction noted as well. CONDITION AT DISCHARGE: Stable. The patient tolerated the procedure well, had no complications. MARK RODAS MD DR: FINN/blue JOB#: [id number] / [id number]
== END | disposition home or self-care (01) ==
LOC: PNCL 07:35
PROVIDERS: ATTEND Anesthesiology
DX: M51.16 Intervertebral disc disorders with radiculopathy, lumbar region (principal)
CPT/HCPCS: 64483; J1040; J3490; Q9965

== ENCOUNTER → 2019-09-20 | Outpatient (CLI) | payer OTHER ==
[2019-03-19 08:26] VITALS: BP 105/66
[~2019-09-20] MED LIST changes: -BUPIVACAINE MPF 0.25% 10 ML VIAL. ONE; +DOCU-109 PO; -IOHEXOL 180 MG/ML 10 ML VIAL. ONE; -methylPREDNISolone ACETATE 80 MG/ML VIAL. ONE
[2019-09-20 15:27] LABS: BASO % 1 % (0-3); EOS # 0.1 x10^3/uL (0.0-0.7); EOS % 1 % (0-3); HEMATOCRIT 42.4 % (36.0-47.0); HEMOGLOBIN 14.4 g/dL (12.0-15.5); LYMPH # 2.5 x10^3/uL (1.0-4.8); LYMPH % 27 % (24-48); MEAN CORPUSCULAR HEMOGLOBIN 32 pg (25-35); MEAN CORPUSCULAR HGB CONC 34 g/dL (31-37); MEAN CORPUSCULAR VOLUME 94 fL (79-100); MONO # 0.4 x10^3/uL (0.0-1.1); MONO % 4 % (0-9); NEUT # 6.2 x10^3/uL (1.8-7.7); NEUT % 67 % (31-73); PLATELET COUNT 325 x10^3/uL (140-400); RED CELL DISTRIBUTION WIDTH 12.8 % (11.5-14.5); WHITE BLOOD COUNT 9.2 x10^3/uL (4.0-11.0)
[2019-09-20 15:52] LABS: ALBUMIN 3.8 g/dL (3.4-5.0); CALCIUM 9.4 mg/dL (8.5-10.1); CREATININE 0.9 mg/dL (0.6-1.0); GFR 64.1; POTASSIUM 4.1 mmol/L (3.5-5.1); TOTAL BILIRUBIN 0.2 mg/dL (0.2-1.0); TOTAL PROTEIN 7.7 g/dL (6.4-8.2)
== END | disposition home or self-care (01) ==
LOC: SURGPAT 13:28
PROVIDERS: ATTEND Neurological Surgery
DX: Z01.818 Encounter for other preprocedural examination (principal); M51.17 Intervertebral disc disorders with radiculopathy, lumbosacral region
CPT/HCPCS: 36415; 80053; 85025; 87641

== ENCOUNTER 2019-09-24 07:18 | Day surgery (SDC) | payer OTHER ==
--- NOTE | 2019-09-23 13:07 | HP ---
ADMIT DATE: 09/24/2019. PREOPERATIVE HISTORY AND PHYSICAL DATE OF SURGERY: 09/24/2019 HISTORY OF PRESENT ILLNESS: The patient is a pleasant 59-year-old, who has difficulty with low back pain and pain in right hip and right anterior thigh. There is also pain in the right buttock. The problem has been present for about 1 year but became worse about 6 weeks ago. She says the pain in her anterior thighs is 10/10. Bearing weight hurts her. Ice helps. She has been using Flexeril and [place]. She has had epidural steroid injection by Dr. Li 3 weeks ago with no benefit. PAST MEDICAL HISTORY: Arthritis. PAST SURGICAL HISTORY: in 1977, in 1983, and cholecystectomy in 2005. FAMILY HISTORY: Cancer, heart disease, hypertension, spine problems. SOCIAL HISTORY: Employed as an RN; ; rarely exercises; denies tobacco use; drinks alcohol 1-2 times per month; drinks caffeine. ALLERGIES: AVOCADO. CURRENT MEDICATIONS: Protonix. REVIEW OF SYSTEMS: A 12-point review of systems was obtained and is noncontributory except for that mentioned above. NEUROSURGERY EXAMINATION: GENERAL APPEARANCE: Alert, pleasant, no acute distress. HEAD: Normocephalic and atraumatic. SKIN: Warm and dry. MUSCULOSKELETAL: Lumbar paraspinal muscle bulk is normal; restricted range of motion of the lumbar spine; [id number] tenderness of the lower lumbar spine with palpation; normal range of motion of the lower extremities bilaterally. EXTREMITIES: No clubbing, cyanosis, or edema. NEUROLOGIC: Alert and oriented x3; normal recent and remote memory; strength 5/5 in bilateral lower extremities. Sensory is intact to light touch in bilateral lower extremities. Reflexes are present and symmetric in lower extremities bilaterally; positive straight leg raising on the right, negative straight leg raising on the left; antalgic gait. IMAGING: I reviewed a lumbar MRI scan from 07/28/2019. On that study, the principal abnormality is at L5-S1 where there is a right foraminal disc protrusion, which contacts the exiting L5 root in the foramen. ASSESSMENT/PLAN: I believe the problem on the right at L5-S1 is responsible for her pain. She has undergone a selective nerve root injection, which was not helpful. At this point, my recommendation would be a transforaminal lumbar micro-decompressive surgery at that level. I discussed that with her including the technique and the risks and expected postoperative course. She would understand. She would like to proceed. We will make the arrangements. SIMI MASON MD DR: ROSIE/blue JOB#: [id number] / [id number] SWETHA
[~2019-09-24] VITALS: Ht 157.5 cm; Wt 75.4 kg
[~2019-09-24 07:18] MED LIST changes: +BACITRACIN 50,000 UNIT in IV NORMAL SALINE 1000ML BAG 1,000 ML IRR ONE; -DOCU-109 PO; +GELATIN SPONGE SIZE 100. ONE; +HYDROmorphone 2 MG/ML VIAL IV PRN; +IV RINGERS,LACTATED 1000ML 1,000 ML IV SCH; +KETOROLAC 60 MG/2 ML VIAL. ONE; +LIDOCAINE 1% PF 2 ML VIAL. ID PRN; +MORPHINE SULFATE 2 MG/ML VIAL. IV PRN; +ONDANSETRON PF 4 MG/2 ML VIAL. IV PRN; +PROCHLORPERAZINE 10 MG/2 ML VIAL. IV PRN; +THROMBIN TOPICAL 20,000 UNIT SPRAY.SYRN KIT TP ONE; +fentaNYL PF VIAL 100 MCG/2 ML VIAL IV PRN
[2019-09-24] MEDS ORDERED: BUPIVACAINE-EPI 0.5%-1:200000 MPF 30 ML VIAL. INJ ONE (08:00)
[2019-09-24] MEDS ORDERED: NEOSTIGMINE METHYLSULFATE 5 MG/5 ML SYRINGE. ONE (08:09)
[2019-09-24] MEDS ORDERED: GLYCOPYRROLATE 1 MG/5 ML VIAL. ONE (08:09)
[2019-09-24] MEDS ORDERED: fentaNYL PF VIAL 100 MCG/2 ML VIAL ONE (08:09)
[2019-09-24] MEDS ORDERED: ROCURONIUM 50 MG/5 ML VIAL. ONE (08:09)
[2019-09-24] MEDS ORDERED: KETOROLAC 60 MG/2 ML VIAL. ONE (08:09)
[2019-09-24] MEDS ORDERED: MIDAZOLAM HCL/PF 2 MG/2 ML VIAL. ONE (08:09)
[2019-09-24] MEDS ORDERED: REMIFENTANIL 2 MG VIAL. IV ONE (08:10)
[2019-09-24] MEDS ORDERED: DOCU-109 PO (09:44)
--- NOTE | 2019-09-24 09:45 | DISCH ---
DISCHARGE INSTRUCTIONS Condition on Discharge Condition on Discharge: Stable Activity After Discharge Activity Instructions for Disc: Resume previous activity, Activity as tolerated Other activity instructions: no drving for a week Bathing Instructions: Shower-keep dressing dry Lifting Instructions after Dis: No heavy lifting, No pulling or pushing, Do not lift >10 pounds Diet after Discharge Additional Diet Restrictions: resume home diet Wound Incision Care Wound/Incision Care: Ice to area for comfort Other wound/incision instructi: may remove dressing in 48 hours if dry then olayinka sandy shower, no soaking Contacting the after DC Call your doctor for: Concerns you may have Follow-Up Follow up with: Dr. Mason's nurse in 2 weeks [phone] SIMI MASON MD Sep 24, 2019 09:45
[2019-09-24] MEDS ORDERED: PROPOFOL 20 ML IV ONE (09:54)
[2019-09-24] MEDS ORDERED: ONDANSETRON PF 4 MG/2 ML VIAL. ONE (09:54)
[2019-09-24] MEDS ORDERED: PROPOFOL 50 ML IV ONE ×2 (09:54)
[2019-09-24] MEDS ORDERED: LIDOCAINE 2% PF 5 ML VIAL. ONE (09:54)
[2019-09-24] MEDS ORDERED: DEXAMETHASONE SOD PHOS 20 MG/5 ML VIAL. ONE (09:54)
--- NOTE | 2019-09-24 11:32 | OP ---
DATE OF SURGERY: 09/24/2019 PREOPERATIVE DIAGNOSES: Foraminal disc herniation L5-S1, right, with right lumbar radiculopathy. POSTOPERATIVE DIAGNOSES: Foraminal disc herniation L5-S1, right, with right lumbar radiculopathy. OPERATION PERFORMED: Transforaminal exposure combined with a hemilaminotomy and removal of a focal disc herniation compressing the L5 root, right L5-S1. The operation was done with monitoring including online EMG. SURGEON: Edgardo Mason M.D. BRINE ROOM LABORER: MAC Craft, assisted with the surgery. She assisted with the exposure, the micro decompression, discectomy as well as the closure. We also employed fluoroscopy and microscopic dissection. OPERATIVE INDICATIONS: The patient is a pleasant 59-year-old woman who developed intractable back and right leg pain which failed conservative measures. On imaging studies, there was a foraminal disc, which was not large, but which was compressing the right L5 root in the foramen and after she failed conservative measures including selective nerve root injections, I recommended lumbar microsurgery. I spoke with her about the surgery, the risks, technique, and expected postoperative course and she wished to go ahead. DESCRIPTION OF PROCEDURE: Following general endotracheal anesthesia, the patient was positioned prone on the Jarret table. Lumbar region prepped and draped in standard fashion. CIERA hose and AV impulse boots were applied for DVT prophylaxis. The microscope was draped. Fluoroscopy was draped and brought into field. Monitoring was established. Ancef 2 g was given less than 1 hour prior to initiation of surgery. Using fluoroscopic guidance, a midline incision was made over the L5-S1 interspace. I dissected down through skin and subcutaneous tissue, reflected the paraspinal muscles and placed a [place] microdisk retractor. I brought in the microscope. I burred down a hemilaminotomy exposing the ligamentum flavum and the exiting S1 root and then I worked laterally through the facet exposing the L5 root, which was compressed and lifted superiorly. There was a significant disc bulge with a focal lateral herniation and I incised the ligament annulus and performed a discectomy and then worked laterally and teased back and removed multiple small disc fragments. As I worked to remove, the nerve moved inferomedially nicely and was fully decompressed. I explored very carefully and I assured myself that was very free. I irrigated copiously with antibiotic solution. I closed the wound in layers with absorbable suture after perfect hemostasis was obtained. I felt the operation went very well. EDGARDO MASON MD DR: ROSIE/blue JOB#: [id number] / [id number] SWETHA
[2019-09-24 12:15] VITALS: BP 126/67
[2019-09-24] MEDS ORDERED: HYDROcodone/APAP 5/325MG 1 TAB TABLET PO ONE (12:15)
[2019-09-24] MEDS ORDERED: CYCLOBENZAPRINE 10 MG TABLET. PO ONE (12:15)
--- NOTE | 2019-09-27 23:06 | PATHOLOGY ---
[facility] Accession Number: [id number] . 01 Material submitted: . vertebral column - LUMBAR DISC AND DECOMPRESSION . 01 Clinical history: . Lumbar herniated disc and radiculopathy . 02 Diagnosis: "Lumbar disc and decompression", discectomy and decompression: - Intervertebral disc material with reactive and degenerative changes. - Decalcified bone, periosteum, ligament tissue, fibroadipose connective tissue and skeletal muscle with reactive and degenerative changes. . (CLW:mm; 09/27/2019) [facility] 09/27/2019 1554 Local . 02 Electronically signed: . Prerna Rees MD, Pathologist NPI- [id number] . 01 Gross description: . Received in formalin labeled "Eva Farris, lumbar disc and decompression," are several pieces of glistening, fibrous tissue measuring 3.5 x 2.3 x 0.7 cm in aggregate dimensions, containing small fragments of possible bone. The tissue is submitted representatively in cassette A1, following decalcification. (TSD; 09/24/2019) TOB/TOB 09/24/2019 2139 Local . 02 Pathologist provided ICD-10: M51.26, M54.16 . 02 CPT . 009855, [id number] Specimen Comment: A courtesy copy of this report has been sent to [phone], [phone] Specimen Comment: [id number] Specimen Comment: Report sent to / DR ROJO Performed at: 01 [facility] [address], [place] [id number] MD Daniel Victoria MD Phone: [phone] Performed at: 02 [facility] [address], [place] [id number] MD Jimmy Jacques MD Phone: [phone]
== END 2019-09-24 12:50 | disposition home or self-care (01) ==
LOC: SURG 07:18
PROVIDERS: ATTEND Neurological Surgery
DX: M51.16 Intervertebral disc disorders with radiculopathy, lumbar region (principal); F15.90 Other stimulant use, unspecified, uncomplicated; Z72.89 Other problems related to lifestyle; Z90.49 Acquired absence of other specified parts of digestive tract; Z98.890 Other specified postprocedural states; Z87.39 Personal history of other diseases of the musculoskeletal system and connective tissue; Z91.018 Allergy to other foods
CPT/HCPCS: 63030; 88304; 88311; A7015; J0696; J1100; J1885; J2001; J2250; J2405; J2704; J2710; J3010; J3490; J7030; J7120; 76000

== ENCOUNTER → 2020-07-27 | Outpatient (CLI) | payer OTHER ==
[~2020-07-27] MED LIST changes: -BACITRACIN 50,000 UNIT in IV NORMAL SALINE 1000ML BAG 1,000 ML IRR ONE; +DOCU-109 PO; -GELATIN SPONGE SIZE 100. ONE; -HYDROmorphone 2 MG/ML VIAL IV PRN; -IV RINGERS,LACTATED 1000ML 1,000 ML IV SCH; -KETOROLAC 60 MG/2 ML VIAL. ONE; -LIDOCAINE 1% PF 2 ML VIAL. ID PRN; -MORPHINE SULFATE 2 MG/ML VIAL. IV PRN; +MULT-445 PO; -MULT1TAB52 PO; -ONDANSETRON PF 4 MG/2 ML VIAL. IV PRN; -PROCHLORPERAZINE 10 MG/2 ML VIAL. IV PRN; -THROMBIN TOPICAL 20,000 UNIT SPRAY.SYRN KIT TP ONE; -fentaNYL PF VIAL 100 MCG/2 ML VIAL IV PRN
[2020-07-27 10:48] LABS: ALBUMIN 3.3 g/dL (3.4-5.0); ALBUMIN/GLOBULIN RATIO 0.9 (1.0-1.7); CHOLESTEROL/HDL RATIO 4.7; CREATININE 0.8 mg/dL (0.6-1.0); GFR 73.2; POTASSIUM 4.3 mmol/L (3.5-5.1); TOTAL BILIRUBIN 0.3 mg/dL (0.2-1.0); TOTAL PROTEIN 7.1 g/dL (6.4-8.2)
--- NOTE | 2020-07-27 11:37 | RAD ---
EXAMINATION: SHOULDER 2+V RIGHT CLINICAL HISTORY: Acute right shoulder pain TECHNIQUE: SHOULDER 2+V RIGHT Number of images/views: 3 COMPARISON: None FINDINGS: Glenohumeral joint space alignment are relatively well-maintained. Mild acromioclavicular degenerative changes. No acute fracture. Acromiohumeral interval maintained. IMPRESSION: No acute osseous abnormality. Electronically signed by: Mark Anthony Granado DO (07/27/2020 11:34 AM) [id number]
== END | disposition home or self-care (01) ==
LOC: RAD 09:45
PROVIDERS: ATTEND Family Medicine
DX: M19.011 Primary osteoarthritis, right shoulder (principal); E78.5 Hyperlipidemia, unspecified; K21.0 Gastro-esophageal reflux disease with esophagitis
CPT/HCPCS: 36415; 73030; 80053; 80061

== ENCOUNTER → 2020-08-22 | Outpatient (CLI) | payer OTHER | END | disposition home or self-care (01) | LOC: LAB 10:34 | PROVIDERS: ATTEND Internal Medicine Pulmonary Disease | DX: R05 Cough (principal); R50.9 Fever, unspecified; R09.81 Nasal congestion; J02.9 Acute pharyngitis, unspecified; Z20.828 Contact with and (suspected) exposure to other viral communicable diseases | CPT/HCPCS: U0003-CS ==

== ENCOUNTER → 2020-09-12 | Outpatient (CLI) | payer OTHER ==
--- NOTE | 2020-09-12 13:20 | RAD ---
EXAM: PA and Lateral Views of the Chest DATE: 09/12/2020 12:48 PM INDICATION: Reason: DX COVID-19 IN SEPT. SHORTNESS OF BREATH. / Spl. Instructions: / History: COMPARISON: No Prior FINDINGS: The heart is not enlarged. Mediastinal and hilar contours are normal. No focal parenchymal airspace opacity. No pleural effusion or pneumothorax. IMPRESSION: 1. No radiographic evidence for acute cardiopulmonary process. Electronically signed by: Jose Lim MD (09/12/2020 1:17 PM) [id number]
== END ==
LOC: RAD 12:33
PROVIDERS: ATTEND Family Medicine
DX: U07.1 COVID-19 (principal)
CPT/HCPCS: 71046

== ENCOUNTER → 2020-09-19 | Outpatient (CLI) | payer OTHER ==
--- NOTE | 2020-09-19 11:13 | RAD ---
EXAMINATION: MRI RIGHT SHOULDER WITHOUT IV CONTRAST CLINICAL HISTORY: Acute right shoulder pain TECHNIQUE: Multiplanar multisequential images obtained through the shoulder without intravenous contrast. COMPARISON: Right shoulder radiographs 07/27/2020 FINDINGS: TENDONS: - Supraspinatus: Mild tendinosis without tear. - Infraspinatus: Minimal tendinosis without tear. - Subscapularis: Within normal limits. - Teres Minor: Within normal limits. - Biceps Tendon: The long head biceps tendon is intact and appropriately located. MUSCLES: Muscle bulk and signal intensity are within normal limits. Partially visualized mild subcutaneous edema overlying the posterolateral deltoid muscle, nonspecific. LABRUM: Circumferential labral degeneration and degenerative tearing in the superior labrum with involvement the biceps anchor. GLENOHUMERAL JOINT: - Joint Fluid: No joint effusion or synovitis. - Cartilage: Within normal limits. ACROMIOCLAVICULAR JOINT: Within normal limits. BONES/MARROW: No evidence of acute fracture or suspicious marrow replacing process. OTHER: Capsular thickening and increased signal with mild pericapsular edema at the axillary recess, suggestive of capsulitis. Mild thickening of the subacromial/subdeltoid bursa which can be seen with bursitis. IMPRESSION: Minimal rotator cuff tendinosis. No full-thickness rotator cuff tear. Labral degeneration with degenerative tearing in the superior labrum. Findings suggestive of mild capsulitis and subacromial/subdeltoid bursitis as described. Electronically signed by: Mark Anthony Granado DO (09/19/2020 11:10 AM) [id number]
== END ==
LOC: MRI 09:05
PROVIDERS: ATTEND Family Medicine
DX: S43.491A Other sprain of right shoulder joint, initial encounter (principal); X58.XXXA Exposure to other specified factors, initial encounter; Y93.89 Activity, other specified; Y92.89 Other specified places as the place of occurrence of the external cause; Y99.8 Other external cause status; M77.8 Other enthesopathies, not elsewhere classified
CPT/HCPCS: 73221

== ENCOUNTER 2020-09-27 13:20 | Emergency (ER) | payer OTHER ==
[~2020-09-27] VITALS: Ht 157.5 cm; Wt 76.0 kg
[2020-09-27 14:05] LABS: BILIRUBIN,URINE NEGATIVE (NEG); CLARITY,URINE CLEAR; NITRITE,URINE NEGATIVE (NEG); PH,URINE 5.5 (<5.0-8.0); PROTEIN,URINE NEGATIVE (NEG-TRACE); UROBILINOGEN,URINE 0.2 mg/dL (0.2 mg/dL)
[2020-09-27 14:14] LABS: COLOR,URINE STRAW
[2020-09-27 14:15] LABS: BACTERIA,URINE FEW /HPF (0-FEW); RBC,URINE RARE /HPF (0-2); WBC,URINE 0 /HPF (0-4)
[2020-09-27 15:00] VITALS: BP 138/82
--- NOTE | 2020-09-27 16:00 | PHYS DOC ---
Past Medical History Past Medical History: High Cholesterol, Other Additional Past Medical Histor: COVID IN SEPT Past Surgical History: Cholecystectomy, , Other Additional Past Surgical Histo: LUMBAR Smoking Status: Never Smoker Alcohol Use: None Drug Use: None General Adult EDM: Chief Complaint: FLANK PAIN HPI: HPI: History obtained from patient. Patient is a 6-year-old female with past medical history for recent Covid infection, cholecystectomy, GERD who presents with chief complaint of left upper quadrant left flank pain over the past several days. States the pain began suddenly. States it seems to be worse after she eats meals. She does note nausea without vomiting. Does note a history of GERD but states this feels different. States he does take Protonix daily. Notes a history of EGD but has no history of ulcers or esophagitis. Does note history of cholecystectomy. States she is somewhat worried about her pancreas. Does note she has been taking statins intermittently which is a new medication for her. Denies any dysuria or hematuria. Denies any vaginal bleeding or discharge. Denies any shortness of breath or chest pain. Denies syncope. Denies history of kidney stone. Denies falls or trauma. States pain is aching and sharp in nature when it is at its worse. Denies history of alcohol, tobacco, or drug abuse. Does note 1 episode of loose nonbloody stool. Denies any recent antibiotics, travel, or exposure to well water. No other complaints. Review of Systems: Review of Systems: Constitutional: Denies fever or chills. [] Eyes: Denies change in visual acuity. [] HENT: Denies nasal congestion or sore throat. [] Respiratory: Denies cough or shortness of breath. [] Cardiovascular: Denies chest pain or edema. [] GI: Positive for abdominal pain and nausea : Denies dysuria. [] Musculoskeletal: Denies back pain or joint pain. [] Integument: Denies rash. [] Neurologic: Denies headache, focal weakness or sensory changes. [] Endocrine: Denies polyuria or polydipsia. [] Lymphatic: Denies swollen glands. [] Psychiatric: Denies depression or anxiety. [] Heart Score: Risk Factors: Risk Factors: DM, Current or recent (<one month) smoker, HTN, HLP, family history of CAD, obesity. Risk Scores: Score 0 - 3: 2.5% MACE over next 6 weeks - Discharge Home Score 4 - 6: 20.3% MACE over next 6 weeks - Admit for Clinical Observation Score 7 - 10: 72.7% MACE over next 6 weeks - Early Invasive Strategies Allergies: Allergies: Allergies Coded Allergies Type Severity Reaction Last Updated Verified Sulfa (Sulfonamide Antibiotics) Allergy Intermediate Hives 09/24/19 Yes Physical Exam: PE: Constitutional: Well developed, well nourished, no acute distress, non-toxic appearance. [] HENT: Normocephalic, atraumatic, bilateral external ears normal, oropharynx moist, no oral exudates, nose normal. [] Eyes: PERRLA, EOMI, conjunctiva normal, no discharge. [] Neck: Normal range of motion, no tenderness, supple, no stridor. [] Cardiovascular:Heart rate regular rhythm, no murmur [] Lungs & Thorax: Bilateral breath sounds clear to auscultation [] Abdomen: Soft, nontender, nonacute abdomen. No involuntary guarding or rigidity noted. No acute peritonitis. Skin: Warm, dry, no erythema, no rash. [] Back: No tenderness, no CVA tenderness. [] Extremities: No tenderness, no cyanosis, no clubbing, ROM intact, no edema. [] Neurologic: Alert and oriented X 3, normal motor function, normal sensory function, no focal deficits noted. [] Psychologic: Affect normal, judgement normal, mood normal. [] Current Patient Data: Labs: Laboratory Tests Test 09/27/20 13:55 Urine Collection Type Unknown Urine Color Straw Urine Clarity Clear Urine pH 5.5 (<5.0-8.0) Urine Specific [place] <=1.005 (1.000-1.030) Urine Protein Negative mg/dL (NEG-TRACE) Urine Glucose (UA) Negative mg/dL (NEG) Urine Ketones (Stick) Negative mg/dL (NEG) Urine Blood Trace (NEG) Urine Nitrite Negative (NEG) Urine Bilirubin Negative (NEG) Urine Urobilinogen Dipstick 0.2 mg/dL (0.2 mg/dL) Urine Leukocyte Esterase Negative (NEG) Urine RBC Rare /HPF (0-2) Urine WBC 0 /HPF (0-4) Urine Squamous Epithelial Cells Few /LPF Urine Bacteria Few /HPF (0-FEW) Vital Signs: Vital Signs Date Time Temp Pulse Resp B/P (MAP) Pulse Ox O2 Delivery O2 Flow Rate FiO2 09/27/20 15:00 97.6 107 16 138/82 (100) 97 Room Air 97.6 EKG: EKG: [] Radiology/Procedures: Radiology/Procedures: [facility] [address] [place] [address] IMAGING REPORT Signed PATIENT: UMA SEGAL ACCOUNT: [id number] : 1960 LOCATION: ER AGE: 60 SEX: F EXAM STATUS: REG ER ORD. PHYSICIAN: JOHANA LAYNE DO REASON: L flank pain PROCEDURE: CT ABDOMEN PELVIS WO CONTRAST EXAM: Abdomen and pelvis CT without intravenous contrast. HISTORY: Flank pain. TECHNIQUE: Computed tomographic images of the abdomen and pelvis were obtained without contrast. Multiplanar reformatting was performed. *One or more of the following individualized dose reduction techniques were utilized for this examination: 1. Automated exposure control. 2. Adjustment of the mA and/or kV according to patient size. 3. Use of iterative reconstruction technique. COMPARISON: None. FINDINGS: Evaluation of the lower thorax demonstrates posterior dependent atelectasis. There is mild air trapping. There is no infiltrate or pleural effusion. The liver is normal in size. No focal hepatic lesion is seen. The gallbladder is absent. The pancreas, spleen, and adrenal glands are unremarkable. There is moderate left hydronephrosis extending to the ureteropelvic junction. No obstructing stone is seen. This suggests ureteropelvic junction stenosis. There is no solid or cystic renal lesion. There is no appendicitis. There is no bowel obstruction. There is no abnormal bowel wall thickening. There are few pelvic phleboliths. The urinary bladder, uterus and adnexal regions are unremarkable. The aorta is normal in caliber. There is no lymphadenopathy. There is a tiny fat-containing umbilical hernia. There are degenerative changes involving the spine. There is no suspicious osseous lesion. IMPRESSION: 1. Moderate left hydronephrosis extending to the ureteropelvic junction. No obstructing stone is seen. This favors ureteropelvic junction stenosis. 2. Tiny fat-containing abdominal hernia. 3. Otherwise, relatively unremarkable abdomen and pelvis CT. Electronically signed by: Marcia Dillard MD (09/27/2020 4:51 PM) [id number] DICTATED and SIGNED BY: MARCIA DILLARD MD DATE: 09/27/201650 [] Course & Med Decision Making: Course & Med Decision Making Pertinent Labs and Imaging studies reviewed. (See chart for details) [] Patient is a very pleasant 60-year-old female presents with epigastric and left upper quadrant discomfort made worse with eating food. Initial vital signs unremarkable. Urinalysis does show some blood. No evidence of infection. Remainder of labs been unremarkable. Including normal lipase and LFTs. CT imaging reveals no acute ureterolithiasis. Incidental left hydronephrosis proximal to the left ureteropelvic junction was identified. Could represent ureteral stricture. Patient's kidney function is normal. On repeat assessment her symptoms have been well controlled. This could be incidental finding given her pain is made worse with eating food. She does take Protonix and Pepcid daily. I did discuss results of labs and imaging great detail with the patient. I offered to call urology myself for further recommendations and establish outpatient follow-up. She prefer to call tomorrow morning for urology follow- up. Overall do feel this is reasonable. She will given a prescription for additional dyspepsia medication as this is more consistent with her history and presentation. She return precautions were discussed and understood. Patient stable for discharge home. I provided verbal discharge instructions regarding their emergency department diagnosis. If you had any diagnostic studies ( Labs or Xray's, CAT scan, Ultrasound ) have your PCP (Primary Care Physician) review them with you since there may be results that require further follow up or investigation. Prognosis, expected clinical course, and return precautions were reviewed. I answered the patients questions and instructed them to return if any new or worsening symptoms develop. The patient expressed understanding of the instructions and reported that all of their questions had been answered. Dragon Disclaimer: Dragnitin Disclaimer: This electronic medical record was generated, in whole or in part, using a voice recognition dictation system. Departure Departure Impression: Primary Impression: Left upper quadrant abdominal pain Additional Impression: Stenosis of ureteropelvic junction Disposition: 01 DC HOME SELF CARE/HOMELESS Condition: STABLE Referrals: LEELEE SWEENEY MD (PCP) Patient Instructions: Heartburn Additional Instructions: Please do not take additional medication 20 minutes prior or [address] Maicol Kwong, Urology [address] [place] [address] Call [place] [phone] Scripts Sucralfate (CARAFATE) 1 Gm Tablet 1 TAB PO QID for 10 Days, #40 TAB 0 Refills Prov: JOHANA LAYNE DO 09/27/20 JOHANA LAYNE DO Sep 27, 2020 16:00
[2020-09-27 16:12] LABS: BASO # 0.1 x10^3/uL (0.0-0.2); BASO % 1 % (0-3); EOS # 0.1 x10^3/uL (0.0-0.7); EOS % 0 % (0-3); HEMOGLOBIN 14.2 g/dL (12.0-15.5); LYMPH # 2.2 x10^3/uL (1.0-4.8); LYMPH % 17 % (24-48); MEAN CORPUSCULAR HEMOGLOBIN 31 pg (25-35); MEAN CORPUSCULAR HGB CONC 34 g/dL (31-37); MEAN CORPUSCULAR VOLUME 92 fL (79-100); MONO # 0.4 x10^3/uL (0.0-1.1); MONO % 3 % (0-9); NEUT # 10.3 x10^3/uL (1.8-7.7); NEUT % 79 % (31-73); PLATELET COUNT 313 x10^3/uL (140-400); RED BLOOD COUNT 4.59 x10^6/uL (3.50-5.40); RED CELL DISTRIBUTION WIDTH 12.9 % (11.5-14.5)
[2020-09-27 16:25] LABS: CALCIUM 9.4 mg/dL (8.5-10.1); GFR 56.6; POTASSIUM 4.1 mmol/L (3.5-5.1)
[2020-09-27 16:38] LABS: ALBUMIN 4.3 g/dL (3.4-5.0); ALBUMIN/GLOBULIN RATIO 1.3 (1.0-1.7); MAGNESIUM 2.2 mg/dL (1.8-2.4); TOTAL BILIRUBIN 0.3 mg/dL (0.2-1.0); TOTAL PROTEIN 7.6 g/dL (6.4-8.2)
--- NOTE | 2020-09-27 16:54 | RAD ---
EXAM: Abdomen and pelvis CT without intravenous contrast. HISTORY: Flank pain. TECHNIQUE: Computed tomographic images of the abdomen and pelvis were obtained without contrast. Multiplanar reformatting was performed. *One or more of the following individualized dose reduction techniques were utilized for this examination: 1. Automated exposure control. 2. Adjustment of the mA and/or kV according to patient size. 3. Use of iterative reconstruction technique. COMPARISON: None. FINDINGS: Evaluation of the lower thorax demonstrates posterior dependent atelectasis. There is mild air trapping. There is no infiltrate or pleural effusion. The liver is normal in size. No focal hepatic lesion is seen. The gallbladder is absent. The pancreas, spleen, and adrenal glands are unremarkable. There is moderate left hydronephrosis extending to the ureteropelvic junction. No obstructing stone is seen. This suggests ureteropelvic junction stenosis. There is no solid or cystic renal lesion. There is no appendicitis. There is no bowel obstruction. There is no abnormal bowel wall thickening. There are few pelvic phleboliths. The urinary bladder, uterus and adnexal regions are unremarkable. The aorta is normal in caliber. There is no lymphadenopathy. There is a tiny fat-containing umbilical hernia. There are degenerative changes involving the spine. There is no suspicious osseous lesion. IMPRESSION: 1. Moderate left hydronephrosis extending to the ureteropelvic junction. No obstructing stone is seen. This favors ureteropelvic junction stenosis. 2. Tiny fat-containing abdominal hernia. 3. Otherwise, relatively unremarkable abdomen and pelvis CT. Electronically signed by: Marcia Campoverde MD (09/27/2020 4:51 PM) [id number]
[2020-09-27] MEDS ORDERED: SUCR1TAB35 PO (17:17)
== END 2020-09-27 17:34 | disposition home or self-care (01) ==
LOC: ER 13:20
DX: R10.12 Left upper quadrant pain (principal); Q62.11 Congenital occlusion of ureteropelvic junction; R11.0 Nausea; R19.7 Diarrhea, unspecified; E78.00 Pure hypercholesterolemia, unspecified; K21.9 Gastro-esophageal reflux disease without esophagitis; Z90.49 Acquired absence of other specified parts of digestive tract; Z98.890 Other specified postprocedural states; Z88.2 Allergy status to sulfonamides
CPT/HCPCS: 36415; 74176; 80053; 81001; 82550; 83690; 83735; 85025; 99284

== ENCOUNTER 2020-09-30 21:29 | Inpatient (IN) | payer OTHER ==
[~2020-09-30] VITALS: Ht 157.5 cm; Wt 78.9 kg
[~2020-09-30 21:29] MED LIST changes: +SUCR1TAB35 PO
--- NOTE | 2020-09-30 23:17 | PHYS DOC ---
Past Medical History Past Medical History: High Cholesterol, Other Additional Past Medical Histor: COVID IN J[place] Past Surgical History: Cholecystectomy, , Other Additional Past Surgical Histo: LUMBAR Smoking Status: Never Smoker Alcohol Use: None Drug Use: None General Adult EDM: Chief Complaint: ABDOMINAL PAIN HPI: HPI: Patient is a 60 year old female who presents with intermittent abdominal pain has been going on for the last 3 to 4 days. Patient was seen here on Friday and diagnosed with hydronephrosis on the left although she did not have any kidney stones. Patient has been started on Carafate for the thought this may be peptic ulcers disease or gastritis. Patient describes last 5 hours of severe stabbing pain in the left upper quadrant epigastric area that radiates to the back. Pain is worse with palpation and eating. Patient denies any fever or cough. Of note patient had COVID-19 about 6 weeks ago and the shortness of breath is finally started to improve. Patient denies any black or bloody sto ols. Patient has had nausea and vomiting today. Review of Systems: Review of Systems: Constitutional: Denies fever or chills. [] Eyes: Denies change in visual acuity. [] HENT: Denies nasal congestion or sore throat. [] Respiratory: Denies cough or shortness of breath. [] Cardiovascular: Denies chest pain or edema. [] GI: Complains abdominal pain with nausea and vomiting but no blood in her stool : Denies dysuria. [] Musculoskeletal: Complains of left flank pain Integument: Denies rash. [] Neurologic: Denies headache, focal weakness or sensory changes. [] Endocrine: Denies polyuria or polydipsia. [] Lymphatic: Denies swollen glands. [] Psychiatric: Denies depression or anxiety. [] Heart Score: Risk Factors: Risk Factors: DM, Current or recent (<one month) smoker, HTN, HLP, family history of CAD, obesity. Risk Scores: Score 0 - 3: 2.5% MACE over next 6 weeks - Discharge Home Score 4 - 6: 20.3% MACE over next 6 weeks - Admit for Clinical Observation Score 7 - 10: 72.7% MACE over next 6 weeks - Early Invasive Strategies Current Medications: Current Medications Medications (Trade) Dose Ordered Sig/Tanika Start Time Stop Time Status Last Admin Dose Admin Morphine Sulfate (Morphine Sulfate) 4 mg 1X ONCE 09/30/20 23:30 09/30/20 23:31 Ondansetron HCl (Zofran) 4 mg 1X ONCE 09/30/20 23:30 09/30/20 23:31 Sodium Chloride 1,000 ml @ 1,000 mls/hr 1X ONCE 09/30/20 23:30 10/01/20 00:29 Allergies: Allergies: Allergies Coded Allergies Type Severity Reaction Last Updated Verified Sulfa (Sulfonamide Antibiotics) Allergy Intermediate Hives 09/24/19 Yes Physical Exam: PE: Constitutional: Well developed, well nourished, no acute distress, non-toxic appearance. [] HENT: Normocephalic, atraumatic, bilateral external ears normal, no trismus, nose normal. [] Eyes: PERRLA, EOMI, conjunctiva normal, no discharge. [] Neck: Normal range of motion, no tenderness, supple, no stridor. [] Cardiovascular:Heart rate regular rhythm, peripheral pulses are intact cap refill is brisk Lungs & Thorax: Bilateral breath sounds clear, no respiratory distress Abdomen: soft, mild epigastric tenderness without guarding or rebound, no masses, no pulsatile masses. [] Skin: Warm, dry, no erythema, no rash. [] Back: No tenderness, no CVA tenderness. [] Extremities: No tenderness, no cyanosis, no clubbing, ROM intact, no edema. [] Neurologic: Alert and oriented X 3, normal motor function, normal sensory function, no focal deficits noted. [] Psychologic: Affect normal, judgement normal, mood normal. [] Current Patient Data: Labs: Laboratory Tests Test 09/30/20 23:04 09/30/20 23:56 White Blood Count 14.7 x10^3/uL Red Blood Count 4.40 x10^6/uL Hemoglobin 13.5 g/dL Hematocrit 39.7 % Mean Corpuscular Volume 90 fL Mean Corpuscular Hemoglobin 31 pg Mean Corpuscular Hemoglobin Concent 34 g/dL Red Cell Distribution Width 12.6 % Platelet Count 342 x10^3/uL Neutrophils (%) (Auto) 88 % Lymphocytes (%) (Auto) 8 % Monocytes (%) (Auto) 3 % Eosinophils (%) (Auto) 0 % Basophils (%) (Auto) 1 % Neutrophils # (Auto) 12.9 x10^3/uL Lymphocytes # (Auto) 1.2 x10^3/uL Monocytes # (Auto) 0.5 x10^3/uL Eosinophils # (Auto) 0.0 x10^3/uL Basophils # (Auto) 0.1 x10^3/uL Platelet Estimate Pending Urine Collection Type Unknown Urine Color Yellow Urine Clarity Turbid Urine pH 5.0 Urine Specific [place] >=1.030 Urine Protein Negative mg/dL Urine Glucose (UA) Negative mg/dL Urine Ketones (Stick) 15 mg/dL Urine Blood Trace Urine Nitrite Negative Urine Bilirubin Negative Urine Urobilinogen Dipstick 1.0 mg/dL Urine Leukocyte Esterase Negative Urine RBC Occ /HPF Urine WBC Occ /HPF Urine Squamous Epithelial Cells Few /LPF Urine Amorphous Sediment Present /HPF Urine Bacteria Few /HPF Urine Hyaline Casts Occasional /HPF Urine Mucus Slight /LPF Sodium Level 136 mmol/L Potassium Level 3.9 mmol/L Chloride Level 103 mmol/L Carbon Dioxide Level 26 mmol/L Anion Gap 7 Blood Urea Nitrogen 17 mg/dL Creatinine 1.2 mg/dL Estimated GFR (Cockcroft-Gault) 45.8 BUN/Creatinine Ratio 14 Glucose Level 147 mg/dL Calcium Level 9.2 mg/dL Total Bilirubin 0.4 mg/dL Aspartate Amino Transf (AST/SGOT) 29 U/L Alanine Aminotransferase (ALT/SGPT) 41 U/L Alkaline Phosphatase 83 U/L Total Protein 7.4 g/dL Albumin 3.8 g/dL Albumin/Globulin Ratio 1.1 Lipase 81 U/L Current Medications Medications (Trade) Dose Ordered Sig/Tanika Route PRN Reason Start Time Stop Time Status Last Admin Dose Admin Sodium Chloride 1,000 ml @ 1,000 mls/hr 1X ONCE IV 09/30/20 23:30 10/01/20 00:29 DC 09/30/20 23:30 Morphine Sulfate (Morphine Sulfate) 4 mg 1X ONCE IV 09/30/20 23:30 09/30/20 23:31 DC 09/30/20 23:49 Ondansetron HCl (Zofran) 4 mg 1X ONCE IVP 09/30/20 23:30 09/30/20 23:31 DC 09/30/20 23:49 Ketorolac Tromethamine (Toradol 15mg Vial) 15 mg 1X ONCE IVP 10/01/20 01:00 10/01/20 01:01 DC 10/01/20 01:11 Hydromorphone HCl (Dilaudid) 1 mg 1X ONCE IVP 10/01/20 02:00 10/01/20 02:01 DC 10/01/20 02:03 Pantoprazole Sodium (PROTONIX VIAL for IV PUSH) 40 mg 1X ONCE IVP 10/01/20 03:00 10/01/20 03:01 Vital Signs: Vital Signs Date Time Temp Pulse Resp B/P (MAP) Pulse Ox O2 Delivery O2 Flow Rate FiO2 10/01/20 02:03 16 Room Air 09/30/20 23:49 16 Room Air 09/30/20 22:00 98.1 101 20 134/87 (103) 98 Room Air 98.1 EKG: EKG: [] Radiology/Procedures: Radiology/Procedures: [][facility] [address] [place] [address] IMAGING REPORT Signed PATIENT: UMA SEGAL ACCOUNT: [id number] : 1960 LOCATION: ER AGE: 60 SEX: F EXAM STATUS: REG ER ORD. PHYSICIAN: DANIELE ZAMORA MD REASON: ABD PAIN, HX OF LEFT HYDRO PROCEDURE: RENAL COMPLETE BILATERAL STUDY: Complete renal sonogram INDICATION: Abdominal pain. Left-sided hydronephrosis seen on the 09/27/2020 CT abdomen/pelvis exam. COMPARISON: 09/27/2020 CT abdomen/pelvis. TECHNIQUE: Real-time grayscale and color Doppler sonographic evaluation of both kidneys. The bladder was also evaluated. FINDINGS: Right kidney: Measures 10.2 cm in length. Limited evaluation of the renal parenchyma due to bowel gas. No complex cyst or mass identified. No hydronephrosis. Left kidney: Measures 11.4 cm in length. Moderate appearing hydronephrosis. No definite complex cyst or mass. No stone visualized. Bladder: The urinary bladder is mostly decompressed limiting assessment of the bladder wall. Miscellaneous: None. IMPRESSION: 1. Hindered assessment of the kidneys due to bowel gas. 2. Moderate hydronephrosis on the left which was also present on the recent CT. Taking into consideration differences in technique the degree of collecting system dilatation is similar. 3. Mostly decompressed urinary bladder. Electronically signed by: HERNANDO ROSENTHAL MD (10/01/2020 1:22 AM) [id number] DICTATED and SIGNED BY: HERNANDO ROSENTHAL MD DATE: 10/01/20 0122 Course & Med Decision Making: Course & Med Decision Making Pertinent Labs and Imaging studies reviewed. (See chart for details) [] 6-year-old female presents with left upper quadrant rating to left back pain. Patient states symptoms are much worse with eating. Patient has tenderness in epigastric and left upper quadrant area. Ultrasound does show some persistent hydronephrosis on the left, she had no CT evidence of kidney stone a few days ago. Patient symptoms are worse with eating and she has appoint with Dr. Camp on the but continues to have significant pain even after morphine and Toradol. I gave her Dilaudid her pain is improved but due to the fact she had multiple visits and continues to have pain I will place her in observation to Dr. Lee consult GI in hopes of determining etiology of her symptoms. Ann Disclaimer: Ann Disclaimer: This electronic medical record was generated, in whole or in part, using a voice recognition dictation system. Departure Departure Impression: Primary Impression: Left upper quadrant abdominal pain Additional Impression: Stenosis of ureteropelvic junction Disposition: 09 ADMITTED INPT THIS HOSP Admitting Physician: Yunior Lee Condition: STABLE Referrals: LEELEE SWEENEY MD (PCP) DANIELE ZAMORA MD Sep 30, 2020 23:17
[2020-09-30 23:21] LABS: BASO # 0.1 x10^3/uL (0.0-0.2); BASO % 1 % (0-3); EOS % 0 % (0-3); HEMATOCRIT 39.7 % (36.0-47.0); HEMOGLOBIN 13.5 g/dL (12.0-15.5); LYMPH # 1.2 x10^3/uL (1.0-4.8); LYMPH % 8 % (24-48); MEAN CORPUSCULAR HEMOGLOBIN 31 pg (25-35); MEAN CORPUSCULAR HGB CONC 34 g/dL (31-37); MEAN CORPUSCULAR VOLUME 90 fL (79-100); MONO # 0.5 x10^3/uL (0.0-1.1); MONO % 3 % (0-9); NEUT # 12.9 x10^3/uL (1.8-7.7); NEUT % 88 % (31-73); PLATELET COUNT 342 x10^3/uL (140-400); RED CELL DISTRIBUTION WIDTH 12.6 % (11.5-14.5); WHITE BLOOD COUNT 14.7 x10^3/uL (4.0-11.0)
[2020-09-30 23:22] LABS: BILIRUBIN,URINE NEGATIVE (NEG); CLARITY,URINE TURBID; COLOR,URINE YELLOW; NITRITE,URINE NEGATIVE (NEG); PROTEIN,URINE NEGATIVE (NEG-TRACE)
[2020-09-30 23:27] LABS: AMORPHOUS SEDIMENT,UR PRESENT /HPF; BACTERIA,URINE FEW /HPF (0-FEW); HYALINE CASTS, URINE OCCASIONAL /HPF; RBC,URINE OCC /HPF (0-2); WBC,URINE OCC /HPF (0-4)
[2020-09-30] MEDS ORDERED: MORPHINE SULFATE 4 MG/ML VIAL. IV ONE (23:30)
[2020-09-30] MEDS ORDERED: ONDANSETRON PF 4 MG/2 ML VIAL. IVP ONE (23:30)
[2020-09-30] MEDS ORDERED: IV NORMAL SALINE 1000ML BAG 1,000 ML IV ONE (23:30)
[2020-10-01 00:16] LABS: CALCIUM 9.2 mg/dL (8.5-10.1); CREATININE 1.2 mg/dL (0.6-1.0); GFR 45.8; POTASSIUM 3.9 mmol/L (3.5-5.1)
[2020-10-01 00:22] LABS: ALBUMIN 3.8 g/dL (3.4-5.0); ALBUMIN/GLOBULIN RATIO 1.1 (1.0-1.7); TOTAL BILIRUBIN 0.4 mg/dL (0.2-1.0); TOTAL PROTEIN 7.4 g/dL (6.4-8.2)
[2020-10-01] MEDS ORDERED: KETOROLAC 15 MG/ML VIAL. IVP ONE (01:00)
--- NOTE | 2020-10-01 01:25 | RAD ---
STUDY: Complete renal sonogram INDICATION: Abdominal pain. Left-sided hydronephrosis seen on the 09/27/2020 CT abdomen/pelvis exam. COMPARISON: 09/27/2020 CT abdomen/pelvis. TECHNIQUE: Real-time grayscale and color Doppler sonographic evaluation of both kidneys. The bladder was also evaluated. FINDINGS: Right kidney: Measures 10.2 cm in length. Limited evaluation of the renal parenchyma due to bowel gas. No complex cyst or mass identified. No hydronephrosis. Left kidney: Measures 11.4 cm in length. Moderate appearing hydronephrosis. No definite complex cyst or mass. No stone visualized. Bladder: The urinary bladder is mostly decompressed limiting assessment of the bladder wall. Miscellaneous: None. IMPRESSION: 1. Hindered assessment of the kidneys due to bowel gas. 2. Moderate hydronephrosis on the left which was also present on the recent CT. Taking into consideration differences in technique the degree of collecting system dilatation is similar. 3. Mostly decompressed urinary bladder. Electronically signed by: HERNANDO ROSENTHAL MD (10/01/2020 1:22 AM) [id number]
[2020-10-01] MEDS ORDERED: HYDROmorphone 2 MG/ML VIAL IVP ONE (02:00)
[2020-10-01] MEDS ORDERED: MORPHINE SULFATE 4 MG/ML VIAL. IV PRN (03:00)
[2020-10-01] MEDS ORDERED: ONDANSETRON PF 4 MG/2 ML VIAL. IV PRN (03:00)
[2020-10-01] MEDS ORDERED: PANTOPRAZOLE IV PUSH 40 MG VIAL. IVP ONE (03:00)
[2020-10-01 04:53] LABS: % BANDS 1 % (0-9); % BASOS 1 % (0-3); % LYMPHS 9 % (24-48); % MONOS 4 % (0-10); % SEGS 85 % (35-66)
[2020-10-01 04:54] LABS: PLT ESTIMATE ADEQUATE (ADEQUATE)
[2020-10-01 05:00] VITALS: BP 138/66
--- NOTE | 2020-10-01 05:40 | NUR ---
The patient, UMA SEGAL, 60 y/o, F admitted by RICH ROJO MD, was given written information regarding hospital policies, unit procedures and contact persons. Valuables were checked and left in room with patient. Vitals stable, resting in bed, call light in reach. Will continue to monitor.
[2020-10-01 07:00] VITALS: BP 121/62
--- NOTE | 2020-10-01 10:06 | NUR ---
Routine consult for Shawna, put in by this RN to ensure the consult was in.
[2020-10-01 10:57] VITALS: BP 101/57
[2020-10-01] MEDS ORDERED: HYDROmorphone 2 MG/ML VIAL IVP PRN (11:00)
[2020-10-01] MEDS: IV NORMAL SALINE 1000ML BAG 1,000 ML IV SCH ×2 (11:22→20:31)
--- NOTE | 2020-10-01 11:34 | HP ---
ADMIT DATE: 10/01/2020 CHIEF COMPLAINT AND HISTORY OF PRESENT ILLNESS: This is a 60-year-old white female, patient of Dr. Yunior Lee, was admitted through the Emergency Room with left upper quadrant flank pain. She had been in the Emergency Room earlier in the week and noted to have a left hydronephrosis, but no definite stone. She had been sent home on Protonix and Carafate without any relief from the pain over that time. The patient does think that the pain is worse 20 minutes or so after eating as a rule; however, has happened last evening without eating so they were not sure if it is definitely related. She describes it as sharp, burning and comes in waves. When she has the pain, she is all over the room trying to find some position to get relief including the bathtub upside down and her chair if she could get there. She is 6 weeks status post COVID with shortness of breath up until a week ago and then none further here over the last week or so with return of smell and taste and has been feeling better other than this pain and is worried that this pain may somehow be related to a post-COVID complication. PAST MEDICAL HISTORY: Remarkable for the COVID and hyperlipidemia. PAST SURGICAL HISTORY: Remarkable for cholecystectomy, , lumbar decompression. MEDICATIONS: Brought with the patient, listed on the computer, have been addressed. ALLERGIES: SHE IS ALLERGIC TO SULFA. SOCIAL HISTORY: She is a lifetime nonsmoker, denies alcohol or drug use. She is , lives at home with her . FAMILY HISTORY: Noncontributory. REVIEW OF SYSTEMS: As mentioned above. She has had some dry heaves with the pain when it is at its worse and has taken a laxative during this week with normal bowel movement as a result with no change in her pain pattern. PHYSICAL EXAMINATION: GENERAL: She is a well-developed, well-nourished white female, currently in no acute distress. VITAL SIGNS: Stable. She is afebrile. HEAD, EYES, EARS, NOSE AND THROAT: Unremarkable. NECK: Supple, without adenopathy or thyromegaly. CHEST: Clear to auscultation and percussion. HEART: Regular rate and rhythm without S3, S4 or murmur. ABDOMEN: Soft, nontender, without hepatosplenomegaly or masses. She does have CVA tenderness present on the left. EXTREMITIES: Without cyanosis, clubbing, edema. NEUROLOGIC: She is intact. LABORATORY DATA: Initial laboratory shows a white count of 14,700 with a slight left shift. Creatinine is 1.2. Glucose was 147 on her chemistry panel. Urinalysis is essentially unremarkable, although she was told she had blood in her urine and I wonder if this is from the prior hospitalization. Ultrasound of her abdomen is remarkable for moderate hydronephrosis of the left, which was also present on the recent CT earlier in the week and the amount of dilation is considered similar between the two. IMPRESSION: 1. Abdominal flank pain, likely radiolucent stone or clot with renal colic. 2. Other problem as listed above. PLAN: GI consult has been ordered. She has an appointment next week to see the paper tube cutter regarding her shortness of breath to make sure it is not from a cardiac complication or COVID and I will ask them to see her while she is here in addition. Depending on findings on GI workup, very likely, will need urological evaluation. TOSHIA CEVALLOS MD DR: ANDREAS/blue JOB#: [id number] / [id number]
--- NOTE | 2020-10-01 11:48 | PDOC2 ---
CARDIOLOGY CONSULT NOTE DATE OF SERVICE: DATE: 10/01/20 TIME: 11:40 CHIEF COMPLAINT: Left flank pain, SOA HPI: 60 y.o woman here for evaluation of left hydronephrosis. Cardiology asked to see her as she has an appt with us to evaluate for dyspnea next week. She has had covid several weeks ago and has been struggling with some dyspnea which has been slowly improving. Denies any chest pain. No syncope or palpitations. PMHX: None significant SOCHX: No alcohol, tob or illicits. FAMHX: NC CURRENT MEDS: Current Medications Medications (Trade) Dose Ordered Sig/Tanika Route PRN Reason Start Time Stop Time Status Last Admin Dose Admin Sodium Chloride 1,000 ml @ 1,000 mls/hr 1X ONCE IV 09/30/20 23:30 10/01/20 00:29 DC 09/30/20 23:30 Morphine Sulfate (Morphine Sulfate) 4 mg 1X ONCE IV 09/30/20 23:30 09/30/20 23:31 DC 09/30/20 23:49 Ondansetron HCl (Zofran) 4 mg 1X ONCE IVP 09/30/20 23:30 09/30/20 23:31 DC 09/30/20 23:49 Ketorolac Tromethamine (Toradol 15mg Vial) 15 mg 1X ONCE IVP 10/01/20 01:00 10/01/20 01:01 DC 10/01/20 01:11 Hydromorphone HCl (Dilaudid) 1 mg 1X ONCE IVP 10/01/20 02:00 10/01/20 02:01 DC 10/01/20 02:03 Pantoprazole Sodium (PROTONIX VIAL for IV PUSH) 40 mg 1X ONCE IVP 10/01/20 03:00 10/01/20 03:01 DC 10/01/20 03:59 Sodium Chloride 1,000 ml @ 100 mls/hr Q10H IV 10/01/20 11:00 10/01/20 11:22 ALLERGIES: Allergies Coded Allergies Type Severity Reaction Last Updated Verified Sulfa (Sulfonamide Antibiotics) Allergy Intermediate Hives 09/24/19 Yes ROS: Negative for 09/06 systems reviewed unless noted above in HPI PHYSICAL EXAM: Vital Signs/I&O: Vital Signs Date Time Temp Pulse Resp B/P (MAP) Pulse Ox O2 Delivery O2 Flow Rate FiO2 10/01/20 10:57 98.2 77 18 101/57 (72) 95 Room Air 98.2 10/01/20 04:50 2.0 I & O 09/30/20 09/30/20 10/01/20 15:00 23:00 07:00 Intake Total 1000 ml Balance 1000 ml Physical Exam: GEN.: No apparent distress. Alert and oriented. HEENT: Head is normocephalic, atraumatic NECK: Supple. LUNGS: Clear to auscultation. HEART: RRR, S1, S2 present. Peripheral pulses intact ABDOMEN: Soft, nontender. Positive bowel sounds. Left flank pain EXTREMITIES: Without any cyanosis. NEUROLOGIC: Normal speech, normal tone PSYCHIATRIC: Normal affect, normal mood. SKIN: No ulcerations DIAGNOSTIC TESTING: Reviewed. Lab Laboratory Tests Test 09/30/20 23:04 09/30/20 23:56 White Blood Count 14.7 x10^3/uL (4.0-11.0) H Red Blood Count 4.40 x10^6/uL (3.50-5.40) Hemoglobin 13.5 g/dL (12.0-15.5) Hematocrit 39.7 % (36.0-47.0) Mean Corpuscular Volume 90 fL (79-100) Mean Corpuscular Hemoglobin 31 pg (25-35) Mean Corpuscular Hemoglobin Concent 34 g/dL (31-37) Red Cell Distribution Width 12.6 % (11.5-14.5) Platelet Count 342 x10^3/uL (140-400) Neutrophils (%) (Auto) 88 % (31-73) H Lymphocytes (%) (Auto) 8 % (24-48) L Monocytes (%) (Auto) 3 % (0-9) Eosinophils (%) (Auto) 0 % (0-3) Basophils (%) (Auto) 1 % (0-3) Neutrophils # (Auto) 12.9 x10^3/uL (1.8-7.7) H Lymphocytes # (Auto) 1.2 x10^3/uL (1.0-4.8) Monocytes # (Auto) 0.5 x10^3/uL (0.0-1.1) Eosinophils # (Auto) 0.0 x10^3/uL (0.0-0.7) Basophils # (Auto) 0.1 x10^3/uL (0.0-0.2) Segmented Neutrophils % 85 % (35-66) H Band Neutrophils % 1 % (0-9) Lymphocytes % 9 % (24-48) L Monocytes % 4 % (0-10) Basophils % 1 % (0-3) Platelet Estimate Adequate (ADEQUATE) Urine Collection Type Unknown Urine Color Yellow Urine Clarity Turbid Urine pH 5.0 (<5.0-8.0) Urine Specific [place] >=1.030 (1.000-1.030) Urine Protein Negative mg/dL (NEG-TRACE) Urine Glucose (UA) Negative mg/dL (NEG) Urine Ketones (Stick) 15 mg/dL (NEG) Urine Blood Trace (NEG) Urine Nitrite Negative (NEG) Urine Bilirubin Negative (NEG) Urine Urobilinogen Dipstick 1.0 mg/dL (0.2 mg/dL) Urine Leukocyte Esterase Negative (NEG) Urine RBC Occ /HPF (0-2) Urine WBC Occ /HPF (0-4) Urine Squamous Epithelial Cells Few /LPF Urine Amorphous Sediment Present /HPF Urine Bacteria Few /HPF (0-FEW) Urine Hyaline Casts Occasional /HPF Urine Mucus Slight /LPF Sodium Level 136 mmol/L (136-145) Potassium Level 3.9 mmol/L (3.5-5.1) Chloride Level 103 mmol/L (98-107) Carbon Dioxide Level 26 mmol/L (21-32) Anion Gap 7 (6-14) Blood Urea Nitrogen 17 mg/dL (7-20) Creatinine 1.2 mg/dL (0.6-1.0) H Estimated GFR (Cockcroft-Gault) 45.8 BUN/Creatinine Ratio 14 (6-20) Glucose Level 147 mg/dL (70-99) H Calcium Level 9.2 mg/dL (8.5-10.1) Total Bilirubin 0.4 mg/dL (0.2-1.0) Aspartate Amino Transf (AST/SGOT) 29 U/L (15-37) Alkaline Phosphatase 83 U/L (46-116) Total Protein 7.4 g/dL (6.4-8.2) Albumin 3.8 g/dL (3.4-5.0) Albumin/Globulin Ratio 1.1 (1.0-1.7) Lipase 81 U/L (73-393) Laboratory Tests 09/30/20 23:04 09/30/20 23:56 ASSESSMENT: 1. Non-cardiac pain 2. Dyspnea - resolved. 3. [place] with GI pain PLAN: 1. Limited echo to ensure normal LV function. Otherwise, no other testing needed. Thanks AYALA MUÑOZ MD Oct 01, 2020 11:48
--- NOTE | 2020-10-01 13:06 | PDOC2 ---
CONSULT Date of Consult Date of Consult DATE: 10/01/20 TIME: 13:00 Reason for Consult Reason for Consult: Left upper quadrant abdominal pain History of Present Illness Reason for Visit: This is a 60-year-old female who describes onset this week of upper abdominal mostly left upper abdominal pain starting after eating pumpkin pie on Friday night. It was a bloating sensation and a dull discomfort in the left upper quadrant radiating through to the left back. She took a laxative and had a bowel movement the next day and felt a little better but then when she ate the symptoms returned. Because of the persistent nature of her symptoms she represented to the emergency room twice this week and on the second occasion was admitted. Initial CT scan done on Friday revealed left hydronephrosis without obvious kidney stone but no other GI or luminal disease was appreciated. Repeat renal ultrasound done yesterday confirmed the hydronephrosis without obvious stone. She denies any prior knowledge of left-sided hydronephrosis AND we do not have any previous imaging of this area. She describes a decreased appetite but no vomiting or nausea or hematemesis. She describes a history of GERD for which she takes pantoprazole for years. Her last EGD was in 2012 at which time she describes having a esophageal dilation for narrowing and atypical chest pain and her symptoms improved at that time. She also describes a screening colonoscopy several years ago that was apparently negative. All of these endoscopic studies were performed by Dr. Borrego. Past Medical History GI: GERD Past Surgical History Past Surgical History: Cholecystectomy, Current Problem List Problem List Problems Medical Problems: (1) Left upper quadrant abdominal pain Status: Acute (2) Stenosis of ureteropelvic junction Status: Acute Current Medications Current Medications Current Medications Sodium Chloride 1,000 ml @ 1,000 mls/hr 1X ONCE IV Last administered on 09/30/20at 23:30; Start 09/30/20 at 23:30; Stop 10/01/20 at 00:29; Status DC Morphine Sulfate (Morphine Sulfate) 4 mg 1X ONCE IV Last administered on 09/30/20at 23:49; Start 09/30/20 at 23:30; Stop 09/30/20 at 23:31; Status DC Ondansetron HCl (Zofran) 4 mg 1X ONCE IVP Last administered on 09/30/20at 23:49; Start 09/30/20 at 23:30; Stop 09/30/20 at 23:31; Status DC Ketorolac Tromethamine (Toradol 15mg Vial) 15 mg 1X ONCE IVP Last administered on 10/01/20at 01:11; Start 10/01/20 at 01:00; Stop 10/01/20 at 01:01; Status DC Hydromorphone HCl (Dilaudid) 1 mg 1X ONCE IVP Last administered on 10/01/20at 02:03; Start 10/01/20 at 02:00; Stop 10/01/20 at 02:01; Status DC Pantoprazole Sodium (PROTONIX VIAL for IV PUSH) 40 mg 1X ONCE IVP Last administered on 10/01/20at 03:59; Start 10/01/20 at 03:00; Stop 10/01/20 at 03:01; Status DC Ondansetron HCl (Zofran) 4 mg PRN Q8HRS PRN IV NAUSEA/VOMITING 1ST CHOICE; Start 10/01/20 at 03:00; Stop 10/02/20 at 02:59 Morphine Sulfate (Morphine Sulfate) 4 mg PRN Q2HR PRN IV SEVERE PAIN 7-10; Start 10/01/20 at 03:00; Stop 10/02/20 at 02:59 Sodium Chloride 1,000 ml @ 100 mls/hr Q10H IV Last administered on 10/01/20at 11:22; Start 10/01/20 at 11:00 Hydromorphone HCl (Dilaudid) 1 mg PRN Q4HRS PRN IVP MODERATE PAIN, SEVERE PAIN; Start 10/01/20 at 11:00 Ketorolac Tromethamine (Toradol 15mg Vial) 15 mg PRN Q6HRS PRN IVP MILD PAIN, INFLAMMATION; Start 10/01/20 at 11:00; Stop 10/06/20 at 10:59 Active Scripts Active Carafate (Sucralfate) 1 Gm Tablet 1 Tab PO QID 10 Days Colace (Docusate Sodium) 100 Mg Capsule 100 Mg PO BID Reported [place] 5-325 Tablet (Acetaminophen/Hydrocodone Bitart) 1 Each Tablet 0.5 Tab PO HS Cyclobenzaprine Hcl 10 Mg Tablet 1 Tab PO QHS Aleve (Naproxen Sodium) 220 Mg Capsule 220 Mg PO BID PRN Protonix (Pantoprazole Sodium) 40 Mg Tablet. 1 Tab PO BID Allergies Allergies: Coded Allergies: Sulfa (Sulfonamide Antibiotics) (Verified Allergy, Intermediate, Hives, 09/24/19) Physical Exam General: Alert, Oriented X3, Cooperative HEENT: Atraumatic, PERRLA Lungs: Clear to auscultation Heart: Regular rate, Normal S1, Normal S2 Abdomen: Normal bowel sounds, Soft, No hepatosplenomegaly, No masses, Other (Mildly tender in the epigastrium and left upper quadrant) Extremities: No clubbing Neuro: Normal gait Psych/Mental Status: Mental status NL Vitals VITALS Vital Signs Date Time Temp Pulse Resp B/P (MAP) Pulse Ox O2 Delivery O2 Flow Rate FiO2 10/01/20 10:57 98.2 77 18 101/57 (72) 95 Room Air 98.2 10/01/20 04:50 2.0 Labs Labs Laboratory Tests Test 09/30/20 23:04 09/30/20 23:56 White Blood Count 14.7 x10^3/uL (4.0-11.0) Red Blood Count 4.40 x10^6/uL (3.50-5.40) Hemoglobin 13.5 g/dL (12.0-15.5) Hematocrit 39.7 % (36.0-47.0) Mean Corpuscular Volume 90 fL (79-100) Mean Corpuscular Hemoglobin 31 pg (25-35) Mean Corpuscular Hemoglobin Concent 34 g/dL (31-37) Red Cell Distribution Width 12.6 % (11.5-14.5) Platelet Count 342 x10^3/uL (140-400) Neutrophils (%) (Auto) 88 % (31-73) Lymphocytes (%) (Auto) 8 % (24-48) Monocytes (%) (Auto) 3 % (0-9) Eosinophils (%) (Auto) 0 % (0-3) Basophils (%) (Auto) 1 % (0-3) Neutrophils # (Auto) 12.9 x10^3/uL (1.8-7.7) Lymphocytes # (Auto) 1.2 x10^3/uL (1.0-4.8) Monocytes # (Auto) 0.5 x10^3/uL (0.0-1.1) Eosinophils # (Auto) 0.0 x10^3/uL (0.0-0.7) Basophils # (Auto) 0.1 x10^3/uL (0.0-0.2) Segmented Neutrophils % 85 % (35-66) Band Neutrophils % 1 % (0-9) Lymphocytes % 9 % (24-48) Monocytes % 4 % (0-10) Basophils % 1 % (0-3) Platelet Estimate Adequate (ADEQUATE) Urine Collection Type Unknown Urine Color Yellow Urine Clarity Turbid Urine pH 5.0 (<5.0-8.0) Urine Specific [place] >=1.030 (1.000-1.030) Urine Protein Negative mg/dL (NEG-TRACE) Urine Glucose (UA) Negative mg/dL (NEG) Urine Ketones (Stick) 15 mg/dL (NEG) Urine Blood Trace (NEG) Urine Nitrite Negative (NEG) Urine Bilirubin Negative (NEG) Urine Urobilinogen Dipstick 1.0 mg/dL (0.2 mg/dL) Urine Leukocyte Esterase Negative (NEG) Urine RBC Occ /HPF (0-2) Urine WBC Occ /HPF (0-4) Urine Squamous Epithelial Cells Few /LPF Urine Amorphous Sediment Present /HPF Urine Bacteria Few /HPF (0-FEW) Urine Hyaline Casts Occasional /HPF Urine Mucus Slight /LPF Sodium Level 136 mmol/L (136-145) Potassium Level 3.9 mmol/L (3.5-5.1) Chloride Level 103 mmol/L (98-107) Carbon Dioxide Level 26 mmol/L (21-32) Anion Gap 7 (6-14) Blood Urea Nitrogen 17 mg/dL (7-20) Creatinine 1.2 mg/dL (0.6-1.0) Estimated GFR (Cockcroft-Gault) 45.8 BUN/Creatinine Ratio 14 (6-20) Glucose Level 147 mg/dL (70-99) Calcium Level 9.2 mg/dL (8.5-10.1) Total Bilirubin 0.4 mg/dL (0.2-1.0) Aspartate Amino Transf (AST/SGOT) 29 U/L (15-37) Alanine Aminotransferase (ALT/SGPT) 41 U/L (14-59) Alkaline Phosphatase 83 U/L (46-116) Total Protein 7.4 g/dL (6.4-8.2) Albumin 3.8 g/dL (3.4-5.0) Albumin/Globulin Ratio 1.1 (1.0-1.7) Lipase 81 U/L (73-393) Laboratory Tests Test 09/30/20 23:04 09/30/20 23:56 White Blood Count 14.7 x10^3/uL (4.0-11.0) Red Blood Count 4.40 x10^6/uL (3.50-5.40) Hemoglobin 13.5 g/dL (12.0-15.5) Hematocrit 39.7 % (36.0-47.0) Mean Corpuscular Volume 90 fL (79-100) Mean Corpuscular Hemoglobin 31 pg (25-35) Mean Corpuscular Hemoglobin Concent 34 g/dL (31-37) Red Cell Distribution Width 12.6 % (11.5-14.5) Platelet Count 342 x10^3/uL (140-400) Neutrophils (%) (Auto) 88 % (31-73) Lymphocytes (%) (Auto) 8 % (24-48) Monocytes (%) (Auto) 3 % (0-9) Eosinophils (%) (Auto) 0 % (0-3) Basophils (%) (Auto) 1 % (0-3) Neutrophils # (Auto) 12.9 x10^3/uL (1.8-7.7) Lymphocytes # (Auto) 1.2 x10^3/uL (1.0-4.8) Monocytes # (Auto) 0.5 x10^3/uL (0.0-1.1) Eosinophils # (Auto) 0.0 x10^3/uL (0.0-0.7) Basophils # (Auto) 0.1 x10^3/uL (0.0-0.2) Segmented Neutrophils % 85 % (35-66) Band Neutrophils % 1 % (0-9) Lymphocytes % 9 % (24-48) Monocytes % 4 % (0-10) Basophils % 1 % (0-3) Platelet Estimate Adequate (ADEQUATE) Urine Collection Type Unknown Urine Color Yellow Urine Clarity Turbid Urine pH 5.0 (<5.0-8.0) Urine Specific [place] >=1.030 (1.000-1.030) Urine Protein Negative mg/dL (NEG-TRACE) Urine Glucose (UA) Negative mg/dL (NEG) Urine Ketones (Stick) 15 mg/dL (NEG) Urine Blood Trace (NEG) Urine Nitrite Negative (NEG) Urine Bilirubin Negative (NEG) Urine Urobilinogen Dipstick 1.0 mg/dL (0.2 mg/dL) Urine Leukocyte Esterase Negative (NEG) Urine RBC Occ /HPF (0-2) Urine WBC Occ /HPF (0-4) Urine Squamous Epithelial Cells Few /LPF Urine Amorphous Sediment Present /HPF Urine Bacteria Few /HPF (0-FEW) Urine Hyaline Casts Occasional /HPF Urine Mucus Slight /LPF Sodium Level 136 mmol/L (136-145) Potassium Level 3.9 mmol/L (3.5-5.1) Chloride Level 103 mmol/L (98-107) Carbon Dioxide Level 26 mmol/L (21-32) Anion Gap 7 (6-14) Blood Urea Nitrogen 17 mg/dL (7-20) Creatinine 1.2 mg/dL (0.6-1.0) Estimated GFR (Cockcroft-Gault) 45.8 BUN/Creatinine Ratio 14 (6-20) Glucose Level 147 mg/dL (70-99) Calcium Level 9.2 mg/dL (8.5-10.1) Total Bilirubin 0.4 mg/dL (0.2-1.0) Aspartate Amino Transf (AST/SGOT) 29 U/L (15-37) Alanine Aminotransferase (ALT/SGPT) 41 U/L (14-59) Alkaline Phosphatase 83 U/L (46-116) Total Protein 7.4 g/dL (6.4-8.2) Albumin 3.8 g/dL (3.4-5.0) Albumin/Globulin Ratio 1.1 (1.0-1.7) Lipase 81 U/L (73-393) Images Images CT scan of the abdomen and pelvis earlier this week. Ultrasound kidney. Assessment/Plan Assessment/Plan Upper abdominal pain predominantly left upper quadrant. A bloating and fullness with some discomfort radiating through to the back. Decreased appetite because food seems to make the symptoms worse. Failed to improve with laxative and bowel movement this week. She has a history of GERD but no history of peptic ulcer disease. She had a cholecystectomy years ago so the possibility of bile gastritis, Helicobacter, peptic ulcer disease must all be considered. Additionally imaging studies did not reveal any gastric or luminal disease but did reveal left-sided hydronephrosis. She was unaware of this and the question could be is she presenting with atypical nephrolithiasis. Plan: Since we are not doing endoscopy today I would resume a full liquid diet, sucralfate 4 times a day and pantoprazole. GI cocktail on a as needed basis EGD soon. Dr. Camp will assume her care tomorrow Urology consult would also be recommended TRENT GUNN MD Oct 01, 2020 13:06
[2020-10-01] MEDS ORDERED: LIDO:MAALOX 1:1 20 ML SINGLE DOSE. PO PRN (13:15)
[2020-10-01 15:00] VITALS: BP 100/40
[2020-10-01] MEDS: SUCRALFATE 1 GM TABLET. PO SCH ×2 (18:38→20:31)
[2020-10-01 19:45] VITALS: BP 116/52
[2020-10-01 23:20] VITALS: BP 116/64
[2020-10-02] VITALS (9 sets, daily range): BP systolic 102–143; BP diastolic 52–78
[2020-10-02] MEDS: SUCRALFATE 1 GM TABLET. PO SCH ×4 (08:42→20:36)
--- NOTE | 2020-10-02 08:56 | PDOC ---
Provider Note Date of Service: DATE: 10/02/20 TIME: 08:54 Provider Note is set to see uro as op re hydro, but postprandial pain could be gastroparesis, h pylori, etc- gi to decide re EGD vs GET study- echo pending Justifications for Admission Other Justification RICH ROJO MD Oct 02, 2020 08:56
[2020-10-02] MEDS: DOCUSATE SODIUM 100 MG CAPSULE. PO SCH ×2 (09:08→20:36)
[2020-10-02] MEDS: PANTOPRAZOLE 40 MG TABLET.DR. PO SCH ×2 (09:08→16:30)
--- NOTE | 2020-10-02 11:36 | PDOC ---
HIPOLITO HIGH APRN 10/02/20 1136: CARDIO Progress Notes Date and Time Date of Service 10/02/20 Time of Evaluation 1130 Subjective Subjective: No Chest Pain, No shortness of breath, No Palpitations, Other (c/o heartburn ) Vitals Vitals Vital Signs Date Time Temp Pulse Resp B/P (MAP) Pulse Ox O2 Delivery O2 Flow Rate FiO2 10/02/20 11:30 98.4 77 18 113/66 (82) 95 Room Air 98.4 10/02/20 08:00 2.0 Weight Weight [ ] Input and Output Intake and Output Intake and Output 10/02/20 07:00 Intake Total 720 ml Balance 720 ml Intake Oral 720 ml # Voids 4 Laboratory Labs Laboratory Tests Test 10/01/20 13:24 SARS-CoV-2 Antigen (Rapid) Negative (NEGATIVE) Physical Exam HEENT: Neck Supple W Full Motion Chest: Symmetric LUNGS: Clear to Auscultation Heart: RRR Abdomen: Other (doft ) Extremities: No Edema Neurology: alert Assessment Assessment 1. Chest, epigastric pain; non-cardiac. EGD later today 2. Dyspnea - resolved. 3. Recent COVID; 8 weeks ago 3. LUQ abdominal pain; US with left hydronephrosis, moderate Recommendations Limited echo today Nothing further from a CV standpoint Follow GI recs Outpatient urology Justicifation of Admission Dx: Justifications for Admission: Justification of Admission Dx: Yes AYALA MUÑOZ MD 10/02/20 1538: CARDIO Progress Notes Plan Plan Pt. seen and examined. Agree with above Scrub Tech note. Supportive care. Echo wnl Thanks. HIPOLITO HIGH APRN Oct 02, 2020 11:36 AYALA MUÑOZ MD Oct 02, 2020 15:38
[2020-10-02] MEDS ORDERED: IV RINGERS,LACTATED 1000ML 1,000 ML IV SCH (12:14)
--- NOTE | 2020-10-02 15:10 | NUR ---
SS following for discharge planning. SS reviewed pt chart and discussed with pt RN. Pt is from home with spouse and is currently on room air. COVID19 negative. EGD today. SS will continue to follow for discharge planning.
--- NOTE | 2020-10-02 16:33 | CARD ---
MR#: [id number] Date of Study: 10/02/2020 Ordering Physician: AYALA MATA, Referring Physician: AYALA MATA, Tech: Naz Strauss APPROVED REPORT EXAM: Two-dimensional and M-mode echocardiogram with Doppler and color Doppler. Other Information Quality : AverageHR: 81bpm INDICATION Dyspnea 2D DIMENSIONS RVDd3.2 (2.9-3.5cm)Left Atrium(2D)2.8 (1.6-4.0cm) IVSd0.9 (0.7-1.1cm)Aortic Root(2D)2.6 (2.0-3.7cm) LVDd4.0 (3.9-5.9cm)LVOT Diameter1.9 (1.8-2.4cm) PWd0.9 (0.7-1.1cm)LVDs2.6 (2.5-4.0cm) FS (%) 34.6 %SV45.9 ml LVEF(%)64.3 (>50%) Tricuspid Valve RAP [id number] LEFT VENTRICLE The left ventricle is normal size. There is normal left ventricular wall thickness. The left ventricu lar systolic function is normal and the ejection fraction is within normal range. The Ejection Fracti on is 55-60%. There is normal LV segmental wall motion. RIGHT VENTRICLE The right ventricle is normal size. There is normal right ventricular wall thickness. The right ventr icular systolic function is normal. ATRIA The left atrium size is normal. The right atrium size is normal. The interatrial septum is intact wit h no evidence for an atrial septal defect or patent foramen ovale as noted on 2-D or Doppler imaging. AORTIC VALVE The aortic valve is normal in structure and function. Doppler and color-flow analysis was not perform ed. There is no significant aortic valvular stenosis. MITRAL VALVE The mitral valve is thickened but opens well. There is no evidence of mitral valve prolapse. There is no mitral valve stenosis. Doppler and color-flow analysis was not performed. TRICUSPID VALVE The tricuspid valve is normal in structure and function. Doppler and color-flow analysis was not perf ormed. There is no tricuspid valve stenosis. PULMONIC VALVE The pulmonic valve is not well visualized. Doppler and color-flow analysis was not performed. GREAT VESSELS The aortic root is normal in size. The IVC is normal in size and collapses >50% with inspiration. PERICARDIAL EFFUSION There is no evidence of significant pericardial effusion. Critical Notification Critical Value: No <Conclusion> The left ventricular systolic function is normal and the ejection fraction is within normal range. Th e Ejection Fraction is 55-60%. There is normal LV segmental wall motion. Limited echo only Signed by : Ayala Mata, Electronically Approved : 10/02/2020 16:32:32
--- NOTE | 2020-10-02 17:39 | PDOC4 ---
Operative Note Operative Note EGD with dilation Meds Propofol per anesthesia Pre-op dx Dysphagia/abd pain Post-op dx Schatzki ring s/p dilation 54 Fr non-erosive gastritis Plan GES to further assess DANIELE PINTO MD Oct 02, 2020 17:39
[2020-10-02] MEDS ORDERED: PROPOFOL 10 MG/ML (20ML) VIAL. IV ONE (17:49)
[2020-10-02] MEDS ORDERED: LIDOCAINE 2% PF 5 ML VIAL. ONE (17:49)
[2020-10-02] MEDS: CYCLOBENZAPRINE 10 MG TABLET. PO SCH (20:36)
[2020-10-02] MEDS: HYDROcodone/APAP 5/325MG 1 TAB TABLET PO SCH (21:00)
[2020-10-03] VITALS (7 sets, daily range): BP systolic 89–138; BP diastolic 35–72
[2020-10-03] MEDS: KETOROLAC 15 MG/ML VIAL. IVP PRN (07:58)
[2020-10-03] MEDS: PANTOPRAZOLE 40 MG TABLET.DR. PO SCH ×2 (07:58→16:34)
[2020-10-03] MEDS: SUCRALFATE 1 GM TABLET. PO SCH ×4 (07:58→23:00)
--- NOTE | 2020-10-03 08:51 | PDOC ---
Provider Note Date of Service: DATE: 10/03/20 TIME: 08:50 Provider Note out for get study- dago ross on egd would not explaain post prandial sxs- will see uro as op re L hydro as she needs a cysto/pyelogram Justifications for Admission Other Justification RICH ROJO MD Oct 03, 2020 08:51
[2020-10-03] MEDS: DOCUSATE SODIUM 100 MG CAPSULE. PO SCH ×2 (09:00→22:19)
--- NOTE | 2020-10-03 09:47 | PDOC ---
Date of Service: DATE: 10/03/20 TIME: 09:40 Subjective: Subjective: Back from first part of GES - some nausea and bloating. Tolerated diet last night though later on had LUQ pain wrapping around to left flank - "bloating" Last stool was last Friday. Objective: Vital Signs: Vital Signs Date Time Temp Pulse Resp B/P (MAP) Pulse Ox O2 Delivery O2 Flow Rate FiO2 10/03/20 07:00 98.4 89 18 138/72 (94) 96 Room Air 98.4 10/02/20 17:43 2.0 Imaging: EGD with dilation 10/02 Pre-op dx Dysphagia/abd pain Post-op dx Schatzki ring s/p dilation 54 Fr non-erosive gastritis Plan GES to further assess Echo 10/02 <Conclusion> The left ventricular systolic function is normal and the ejection fraction is within normal range. The Ejection Fraction is 55-60%. There is normal LV segmental wall motion. Limited echo only PE: GEN: NAD LUNGS: CTAB HEART: RRR ABD: BS+, soft, LUQ discomfort toward left flank NEURO/PSYCH: A & O 3 A/P: Abd pain - epigastric/LUQ down left mid abdomen Bloating, nausea, GERD, dysphagia (improved s/p dilation) ?constipation Left hydronephrosis - no urology available here, plans for outpt eval S/p cholecystectomy Rapid COVID negative 10/01 -- Await GES. Continue PPI +/- Carafate. Add Miralax, Dulcolax if she wants - particularly since taking Dilaudid and Lortab. Justicifation of Admission Dx: Justifications for Admission: Justification of Admission Dx: Yes JUJU OSMAN Oct 03, 2020 09:47
[2020-10-03] MEDS ORDERED: POLYETHYLENE GLYCOL 3350 17 GM PACKET. PO PRN (10:00)
[2020-10-03] MEDS ORDERED: BISACODYL 5 MG TABLET.DR. PO PRN (10:00)
[2020-10-03] MEDS: POLYETHYLENE GLYCOL 3350 17 GM PACKET. PO SCH (12:54)
--- NOTE | 2020-10-03 15:12 | NUR ---
SS following up with discharge planning. SS reviewed pt chart and discussed with pt RN. Pt is currently on room air. COVID19 negative. Pt had gastric emptying study today. Discharge plan is to home when medically ready. SS will continue to follow for discharge planning.
--- NOTE | 2020-10-03 16:33 | RAD ---
Gastric Emptying Study Indication: Reason: abd pain n/v / Spl. Instructions: / History: Procedure: Anterior and posterior projection static images are obtained over the stomach following oral administration of 2.1 mCi of 99 M technetium sulfur colloid in a solid meal. Time points include an immediate baseline, and 1, 2, 3, and 4 hours post ingestion. Findings: There is progressive emptying of the stomach on sequential images. Percentage retention at one hour is 53% (normal 34.8-91%). Two hours 38% (normal 2.7-60%). Three hours 24% (normal 0.5-28%). Four hours 8% (normal 0-10%). The calculated T1/2 of emptying is 71 minutes. 45-90 minutes is normal. IMPRESSION: Normal 4 hour protocol gastric emptying study. Electronically signed by: Santy Mayes MD (10/03/2020 4:30 PM) [id number]
--- NOTE | 2020-10-03 16:45 | NUR ---
Pt arrived on unit at approx 1555, accompanied by . Pt rating pain at 0/10 at this time. Will assume care of this pt and monitor closely.
[2020-10-03] MEDS: CYCLOBENZAPRINE 10 MG TABLET. PO SCH (22:20)
[2020-10-03] MEDS: HYDROcodone/APAP 5/325MG 1 TAB TABLET PO SCH (22:21)
[2020-10-04 03:12] VITALS: BP 116/66
[2020-10-04] MEDS: KETOROLAC 15 MG/ML VIAL. IVP PRN (04:01)
[2020-10-04 07:16] VITALS: BP 99/52
[2020-10-04] MEDS: SUCRALFATE 1 GM TABLET. PO SCH ×2 (07:50→10:59)
[2020-10-04] MEDS: PANTOPRAZOLE 40 MG TABLET.DR. PO SCH (07:50)
[2020-10-04] MEDS: DOCUSATE SODIUM 100 MG CAPSULE. PO SCH (07:54)
[2020-10-04] MEDS: POLYETHYLENE GLYCOL 3350 17 GM PACKET. PO SCH (07:54)
--- NOTE | 2020-10-04 08:47 | PDOC ---
Provider Note Date of Service: DATE: 10/04/20 TIME: 08:46 Provider Note [id number] Justifications for Admission Other Justification RICH ROJO MD Oct 04, 2020 08:47
--- NOTE | 2020-10-04 09:03 | DS ---
DATE OF DISCHARGE: 10/04/2020 HOSPITAL SUMMARY: A 60-year-old white female admitted with left upper quadrant and left flank pain that appeared to be related to eating, but was a few hours after eating. CT scan as an outpatient had shown some degree of left hydronephrosis, etiology undetermined, but the chemistry profile and CBC were unremarkable. She was positive for coronavirus, negative for rapid antigen coronavirus and she has had coronavirus in the last 4-6 weeks, so this is a residual finding. Gastric emptying time was normal. She had an EGD with some degree of a Schatzki's ring and dilation was found, but it was felt more likely her pain is related to her hydronephrosis and not to her GI findings. She will be going to see a urologist as an outpatient, perhaps at to further evaluate the hydronephrosis, which will require cystoscopy and pyelography as she may have stone or event strictures in the distal ureter, the source in her problem. FINAL DIAGNOSES: 1. Abdominal pain secondary to left hydronephrosis. 2. Schatzki's ring with mild gastritis. OPERATIONS AND PROCEDURES: EGD and esophageal dilation. COMPLICATIONS: None. CONSULTATIONS: Dr. Ghosh. DISPOSITION: She will continue her GI meds, Carafate and Protonix and will be seeing a urologist as an outpatient or going to [facility] if she gets worse for acute admission and urologic evaluation. Regular diet, high fluid intake. Activity as tolerated. RICH ROJO MD DR: SHANON/blue JOB#: [id number] / [id number]
[2020-10-04 10:34] VITALS: BP 131/63
--- NOTE | 2020-10-04 11:07 | NUR ---
SW following. Discussed with RN, discharge order for home with self care. RN advised no SW needs.
--- NOTE | 2020-10-04 12:16 | NUR ---
pt is discharged home with self care at 1156 via ambulation via [facility] [place]. pt is in stable condition. pt has all belongings with her. pt received discharge instructions and stated she had no further questions for me.
== END 2020-10-04 11:56 | disposition home or self-care (01) | DRG 178 ==
LOC: ER 21:29 → 2 SOUTH 10-01 02:45 → OBSVTOIN 10-01 19:19 → 4 NORTH 10-03 15:45
PROVIDERS: ADMIT Family Medicine; ATTEND Family Medicine
PROC: 0D768ZZ Dilation of Stomach, Via Natural or Artificial Opening Endoscopic (ICD-10-PCS; principal; 2020-10-02 17:30)
DX: U07.1 COVID-19 (principal); N13.30 Unspecified hydronephrosis; Q62.11 Congenital occlusion of ureteropelvic junction; E78.00 Pure hypercholesterolemia, unspecified; E78.5 Hyperlipidemia, unspecified; K21.9 Gastro-esophageal reflux disease without esophagitis; K22.2 Esophageal obstruction; K29.70 Gastritis, unspecified, without bleeding; K59.00 Constipation, unspecified; Z20.828 Contact with and (suspected) exposure to other viral communicable diseases; Z90.49 Acquired absence of other specified parts of digestive tract; Z88.2 Allergy status to sulfonamides
CPT/HCPCS: 36415; 43450; 76770; 78264; 80053; 81001; 83690; 85007; 85025; 87426; 93308; 96361; 96374; 96375; 99285; A9541; C9113; G0378; G0379; J1170; J1885; J2270; J2405; J2704; J7030; J7120; U0003

== ENCOUNTER → 2020-10-17 | Outpatient (CLI) | payer OTHER ==
[2020-10-04 10:34] VITALS: BP 131/63
[~2020-10-17] MED LIST changes: +BARIUM SULFATE 60% 355 ML SUSP PO ONE
--- NOTE | 2020-10-17 16:29 | RAD ---
EXAM: SMALL BOWEL FOLLOW-THROUGH. HISTORY: Abdominal bloating and discomfort.. COMPARISON: Abdomen pelvis CT without IV contrast of 09/27/2020.. FINDINGS: A senior commissary agent image was obtained. Water-soluble contrast material was administered orally and followed in its course through the stomach, small bowel and proximal colon with fluoroscopy and plain radiographs. 2 fluoroscopic images were obtained. Fluoroscopy time 0.3 minutes. The senior commissary agent image demonstrates a nonobstructive bowel gas pattern. There are no distended small bowel loops. No strictures are seen. The small bowel fold pattern is unremarkable. Transit time was brisk at less than 15 minutes (normal <2 hours.) IMPRESSION: 1. Normal small bowel mucosal pattern with borderline rapid transit of enteric contrast through the small bowel. This could represent a hypersecretory state. No deformity to the terminal ileum suggestive of terminal ileitis. Electronically signed by: Lidia Luis MD (10/17/2020 4:26 PM) [id number]
== END ==
LOC: RAD 13:00
PROVIDERS: ATTEND Internal Medicine Gastroenterology
DX: R14.0 Abdominal distension (gaseous) (principal); R10.9 Unspecified abdominal pain
CPT/HCPCS: 74250

== ENCOUNTER → 2020-11-10 | Outpatient (CLI) | payer OTHER ==
[~2020-11-10] MED LIST changes: -BARIUM SULFATE 60% 355 ML SUSP PO ONE
== END ==
LOC: LAB 16:34
DX: R30.0 Dysuria (principal)
CPT/HCPCS: 87086

== ENCOUNTER → 2020-11-10 | Outpatient (CLI) | payer OTHER ==
--- NOTE | 2020-11-10 12:12 | RAD ---
XR ABDOMEN 1V 11/10/2020 9:01 AM INDICATION: Hydronephrosis COMPARISON: CT abdomen/pelvis 09/27/2020 TECHNIQUE: 2 supine views of the abdomen are provided. FINDINGS/ IMPRESSION: 1. Supine technique limits evaluation for free intraperitoneal air. 2. There is a left-sided ureteral stent, new from prior CT from 09/27/2020. Proximal pigtail projects over the left renal shadow and distal pigtail projecting over the urinary bladder. No definite calcul i along the genitourinary tract. Phleboliths identified in the left hemipelvis. 3. Cholecystectomy change are present. Nonobstructed bowel gas pattern. Moderate amount stool noted i n the right colon. Electronically signed by: Keila White MD (11/10/2020 12:10 PM) [id number]
== END ==
LOC: RAD 08:53
DX: N13.39 Other hydronephrosis (principal); I87.8 Other specified disorders of veins; Z96.0 Presence of urogenital implants
CPT/HCPCS: 74018

== ENCOUNTER 2020-12-07 16:48 | Observation (INO) | payer OTHER ==
[~2020-12-07] VITALS: Ht 157.5 cm; Wt 75.0 kg
[2020-12-07 17:58] LABS: BILIRUBIN,URINE NEGATIVE (NEG); CLARITY,URINE CLEAR; COLOR,URINE YELLOW; NITRITE,URINE NEGATIVE (NEG); PH,URINE 5.5 (<5.0-8.0); PROTEIN,URINE 30 mg/dL (NEG-TRACE); UROBILINOGEN,URINE 0.2 mg/dL (0.2 mg/dL)
[2020-12-07] MEDS ORDERED: IV NORMAL SALINE 1000ML BAG 1,000 ML IV SCH (18:00)
[2020-12-07] MEDS ORDERED: fentaNYL PF VIAL 100 MCG/2 ML VIAL IVP ONE (18:00)
[2020-12-07] MEDS ORDERED: methylPREDNISolone SOD SUCC PF 125 MG/2 ML VIAL. IV ONE (18:15)
[2020-12-07 18:19] LABS: BASO # 0.1 x10^3/uL (0.0-0.2); BASO % 1 % (0-3); EOS # 0.3 x10^3/uL (0.0-0.7); EOS % 3 % (0-3); HEMATOCRIT 35.8 % (36.0-47.0); HEMOGLOBIN 12.3 g/dL (12.0-15.5); LYMPH # 1.4 x10^3/uL (1.0-4.8); LYMPH % 14 % (24-48); MEAN CORPUSCULAR HEMOGLOBIN 32 pg (25-35); MEAN CORPUSCULAR HGB CONC 34 g/dL (31-37); MEAN CORPUSCULAR VOLUME 94 fL (79-100); MONO # 0.7 x10^3/uL (0.0-1.1); MONO % 8 % (0-9); NEUT # 7.1 x10^3/uL (1.8-7.7); NEUT % 75 % (31-73); PLATELET COUNT 318 x10^3/uL (140-400); RED BLOOD COUNT 3.81 x10^6/uL (3.50-5.40); RED CELL DISTRIBUTION WIDTH 13.6 % (11.5-14.5); WHITE BLOOD COUNT 9.6 x10^3/uL (4.0-11.0)
[2020-12-07 18:25] LABS: CALCIUM 9.2 mg/dL (8.5-10.1); CREATININE 1.2 mg/dL (0.6-1.0); GFR 45.8; POTASSIUM 3.9 mmol/L (3.5-5.1)
[2020-12-07] MEDS ORDERED: hydrOXYzine 25 MG TABLET PO ONE (18:30)
[2020-12-07 18:31] LABS: ALBUMIN 3.5 g/dL (3.4-5.0); TOTAL BILIRUBIN 0.4 mg/dL (0.2-1.0); TOTAL PROTEIN 7.1 g/dL (6.4-8.2)
--- NOTE | 2020-12-07 18:35 | PHYS DOC ---
Past Medical History Past Medical History: High Cholesterol, Other Additional Past Medical Histor: COVID IN JUL,KIDNEY ISSUES (JUAN MILLER TYPE COPY EXAMINER) Past Surgical History: Cholecystectomy, , Other Additional Past Surgical Histo: LUMBAR,KIDNEY/UPJ/STENT (JUAN MILLER TYPE COPY EXAMINER) Smoking Status: Never Smoker Alcohol Use: None Drug Use: None (JUAN MILLER TYPE COPY EXAMINER) General Adult EDM: Chief Complaint: CELLULITIS HPI: HPI: Patient is a 60 year old female who presents with patient on November 29 was at [facility] and saw urology and surgery which they placed a stent in here left ureter. She states that the last week or so she has had increased redness, itching and burning and swelling of her abdomen. She states she cannot stop itching and rubbing on the area. She has taken pictures each day and the redness has progressed. She states that she saw the urologist this morning of which gave her Keflex and stated that was probably cellulitis. She states that she began feeling unwell today and took her temperature and it stated 100. She also had her first Covid shot today here at the hospital. 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 Patient's surgical puncture wounds from the laparoscopic surgery are healing and there is no discharge coming from them but there is generalized redness and swelling to the area of her abdomen. Patient states that she has been taking 50 mg of Benadryl at the time. She states that she took Benadryl at 1400 today with Keflex and ibuprofen. She then later states that she thinks she may have took the Benadryl at 11:00 but she is unsure. Patient had Covid in July, she has a history of cholecystectomy, , high cholesterol, she has a right sided frozen shoulder which she is supposed to have surgery on this coming Friday, and her vertebral disc disorder. Currently rating her pain around a 5. Patient denies chest pain, nausea, vomiting, diarrhea, shortness of breath, cough, nasal congestion, headache, dizziness, body aches. (JUAN MILLER TYPE COPY EXAMINER) Review of Systems: Review of Systems: Constitutional: + fever or chills. [] Eyes: Denies change in visual acuity. [] HENT: Denies nasal congestion or sore throat. [] Respiratory: Denies cough or shortness of breath. [] Cardiovascular: Denies chest pain or edema. [] GI: + abdominal pain, denies nausea, vomiting, bloody stools or diarrhea. [] : Denies dysuria. [] Musculoskeletal: Denies back pain or joint pain. [] Integument: Denies rash. + Cellulitis [] Neurologic: Denies headache, focal weakness or sensory changes. [] Endocrine: Denies polyuria or polydipsia. [] Lymphatic: Denies swollen glands. [] Psychiatric: Denies depression or anxiety. [] (JUAN MILLER APRN) Heart Score: Risk Factors: Risk Factors: DM, Current or recent (<one month) smoker, HTN, HLP, family history of CAD, obesity. Risk Scores: Score 0 - 3: 2.5% MACE over next 6 weeks - Discharge Home Score 4 - 6: 20.3% MACE over next 6 weeks - Admit for Clinical Observation Score 7 - 10: 72.7% MACE over next 6 weeks - Early Invasive Strategies (JUAN MILLER APRN) Current Medications: Current Medications Medications (Trade) Dose Ordered Sig/Tanika Start Time Stop Time Status Last Admin Dose Admin Fentanyl Citrate (Fentanyl 2ml Vial) 50 mcg 1X ONCE 12/07/20 18:00 12/07/20 18:01 DC 12/07/20 18:16 50 MCG Hydroxyzine HCl (Atarax) 25 mg 1X ONCE 12/07/20 18:30 12/07/20 18:31 Methylprednisolone Sodium Succinate (SOLU-Medrol 125MG VIAL) 125 mg 1X ONCE 12/07/20 18:15 12/07/20 18:16 DC 12/07/20 18:16 125 MG Sodium Chloride 1,000 ml @ 1,000 mls/hr Q1H 12/07/20 18:00 12/07/20 18:59 12/07/20 18:16 1,000 MLS/HR (JUAN MILLER APRN) Allergies: Allergies: Allergies Coded Allergies Type Severity Reaction Last Updated Verified Sulfa (Sulfonamide Antibiotics) Allergy Intermediate Hives 10/02/20 Yes (JUAN MILLER APRN) Physical Exam: PE: Constitutional: Well developed, well nourished, no acute distress, non-toxic appearance. [] HENT: Normocephalic, atraumatic, bilateral external ears normal, oropharynx moist, no oral exudates, nose normal. [] Eyes: PERRLA, EOMI, conjunctiva normal, no discharge. [] Neck: Normal range of motion, no tenderness, supple, no stridor. [] Cardiovascular:Heart rate regular rhythm, no murmur [] Lungs & Thorax: Bilateral breath sounds clear to auscultation [] Abdomen: Bowel sounds normal, soft, generalized tenderness, no masses, no pulsatile masses. [] Skin: Warm, dry, generalized abdominal erythema, no rash. Healing laparoscopic surgical punctures. [] Back: No tenderness, no CVA tenderness. [] Extremities: No tenderness, no cyanosis, no clubbing, ROM intact, no edema. [] Neurologic: Alert and oriented X 3, normal motor function, normal sensory function, no focal deficits noted. [] Psychologic: Affect normal, judgement normal, mood normal. [] (JUAN MILLER APRN) Current Patient Data: Labs: Laboratory Tests Test 12/07/20 18:05 White Blood Count 9.6 x10^3/uL (4.0-11.0) Red Blood Count 3.81 x10^6/uL (3.50-5.40) Hemoglobin 12.3 g/dL (12.0-15.5) Hematocrit 35.8 % (36.0-47.0) L Mean Corpuscular Volume 94 fL (79-100) Mean Corpuscular Hemoglobin 32 pg (25-35) Mean Corpuscular Hemoglobin Concent 34 g/dL (31-37) Red Cell Distribution Width 13.6 % (11.5-14.5) Platelet Count 318 x10^3/uL (140-400) Neutrophils (%) (Auto) 75 % (31-73) H Lymphocytes (%) (Auto) 14 % (24-48) L Monocytes (%) (Auto) 8 % (0-9) Eosinophils (%) (Auto) 3 % (0-3) Basophils (%) (Auto) 1 % (0-3) Neutrophils # (Auto) 7.1 x10^3/uL (1.8-7.7) Lymphocytes # (Auto) 1.4 x10^3/uL (1.0-4.8) Monocytes # (Auto) 0.7 x10^3/uL (0.0-1.1) Eosinophils # (Auto) 0.3 x10^3/uL (0.0-0.7) Basophils # (Auto) 0.1 x10^3/uL (0.0-0.2) Laboratory Tests 12/07/20 18:05 Vital Signs: Vital Signs Date Time Temp Pulse Resp B/P (MAP) Pulse Ox O2 Delivery O2 Flow Rate FiO2 12/07/20 18:16 20 94 Room Air 12/07/20 17:03 98.6 124 135/96 (109) 98.6 (JUAN MILLER APRN) EKG: EKG: [] (JUAN MILLER APRN) Radiology/Procedures: Radiology/Procedures: [] Impression: [facility] [address] [place], [place] [id number] IMAGING REPORT Signed PATIENT: UMA SEGAL ACCOUNT: [id number] : 1960 LOCATION: ER AGE: 60 SEX: F EXAM STATUS: REG ER ORD. PHYSICIAN: JUAN MILLER APRN REASON: RECENT ABD SURGERY, NOW INFECTED PROCEDURE: CT ABD PELV W/ IV CONTRST ONLY CT scan of the abdomen and pelvis with contrast 12/07/2020 CLINICAL HISTORY: Abdominal pain. Infection. TECHNIQUE: After the intravenous administration of 60 cc of Omnipaque 300 only, contiguous, 2.5 mm axial sections were obtained through the abdomen and pelvis. One or more of the following individualized dose reduction techniques were utilized for this study: 1. Automated exposure control. 2. Adjustment of the mA and/or kV according to patient size. 3. Use of iterative reconstruction technique. FINDINGS: Comparison study 09/27/2020. Images through the lung bases demonstrate minimal dependent subsegmental atelectasis bilaterally. The liver, spleen, pancreas, adrenal glands and right kidney are within normal limits. A double-J ureteral stent has been placed into the left collecting system. The superior aspect of the stent is within the left renal pelvis. The inferior aspect of the stent extends into the urinary bladder. The obstruction involving the left kidney seen on the previous examination has resolved. No acute abnormality of the left kidney is seen. The abdominal aorta tapers normally. Surgical clips are seen within the gallbladder fossa consistent with a cholecystectomy. Air and stool are seen throughout the colon. There is no evidence of bowel obstruction. The appendix is well-visualized and is within normal limits. Images through the pelvis demonstrate a urinary bladder distended with urine. No free fluid is noted. Minimal S-shaped curvature of the thoracolumbar spine is seen. Degenerative changes are seen involving mid and lower lumbar spine along with both hips. IMPRESSION: A double-J ureteral stent has been placed into the left collecting system. The obstruction involving the left collecting systems seen on the previous examination has resolved. No acute abnormality is seen. Electronically signed by: Darrell Marina MD (12/07/2020 7:51 PM) [id number] DICTATED and SIGNED BY: DARRELL MARINA MD DATE: 12/07/20 [id number] (JUAN MILLER APRN) Course & Med Decision Making: Course & Med Decision Making Pertinent Labs and Imaging studies reviewed. (See chart for details) See HPI. Alert and oriented x4. Ambulatory with a steady gait. Patient is given a liter normal saline, hydroxyzine, Solu-Medrol. She is also given fentanyl. She has had a total of 2 doses of Keflex today. Patient states that she thought about going back to [facility] but in order to go to [facility] she has to pay [id number]. Diminished soft but generalized tenderness. Blood Work unremarkable. Lactic acid normal. CT abdomen pelvis showed no acute findings. Patient states she would like to be admitted and I spoke with Dr. Lee who is on-call for Dr. Lora and patient is being admitted. He states to start 1 g of Ancef IV and do Benadryl as needed. [] (JUAN MILLER APRN) Course & Med Decision Making I oversaw on the above date of service of this patient and discussed the care with the BIZTALK ARCHITECT. I agree with the findings, plan of care, and disposition as documented. (SAM MONTEIRO DO) Ann Disclaimer: Ann Disclaimer: This electronic medical record was generated, in whole or in part, using a voice recognition dictation system. (JUAN MILLER APRN) Departure Departure Impression: Primary Impression: Cellulitis, abdominal wall Disposition: 09 ADMITTED INPT THIS HOSP Admitting Physician: Yunior Lee (JUAN MILLER APRN) Condition: STABLE Referrals: LEELEE LORA MD (PCP) JUAN MILLER APRN Dec 07, 2020 18:35 SAM MONTEIRO DO Dec 09, 2020 00:31
[2020-12-07 18:45] LABS: BACTERIA,URINE FEW /HPF (0-FEW)
[2020-12-07] MEDS ORDERED: IOHEXOL 300 MG/ML 100ML VIAL. IV ONE (18:45)
[2020-12-07] MEDS ORDERED: CONTRAST GIVEN. MC PRN (18:45)
[2020-12-07 18:46] LABS: RBC,URINE RARE /HPF (0-2)
[2020-12-07 18:47] LABS: HYALINE CASTS, URINE OCCASIONAL /HPF
--- NOTE | 2020-12-07 19:53 | RAD ---
CT scan of the abdomen and pelvis with contrast 12/07/2020 CLINICAL HISTORY: Abdominal pain. Infection. TECHNIQUE: After the intravenous administration of 60 cc of Omnipaque 300 only, contiguous, 2.5 mm ax ial sections were obtained through the abdomen and pelvis. One or more of the following individualized dose reduction techniques were utilized for this study: 1. Automated exposure control. 2. Adjustment of the mA and/or kV according to patient size. 3. Use of iterative reconstruction technique. FINDINGS: Comparison study 09/27/2020. Images through the lung bases demonstrate minimal dependent subsegmental atelectasis bilaterally. The liver, spleen, pancreas, adrenal glands and right kidney are within normal limits. A double-J ure teral stent has been placed into the left collecting system. The superior aspect of the stent is with in the left renal pelvis. The inferior aspect of the stent extends into the urinary bladder. The obst ruction involving the left kidney seen on the previous examination has resolved. No acute abnormality of the left kidney is seen. The abdominal aorta tapers normally. Surgical clips are seen within the gallbladder fossa consistent with a cholecystectomy. Air and stool are seen throughout the colon. There is no evidence of bowel ob struction. The appendix is well-visualized and is within normal limits. Images through the pelvis demonstrate a urinary bladder distended with urine. No free fluid is noted. Minimal S-shaped curvature of the thoracolumbar spine is seen. Degenerative changes are seen involvi ng mid and lower lumbar spine along with both hips. IMPRESSION: A double-J ureteral stent has been placed into the left collecting system. The obstructio n involving the left collecting systems seen on the previous examination has resolved. No acute abnor mality is seen. Electronically signed by: Darrell Marina MD (12/07/2020 7:51 PM) [id number]
[2020-12-07] MEDS ORDERED: ONDANSETRON PF 4 MG/2 ML VIAL. IV PRN (20:45)
[2020-12-07] MEDS ORDERED: fentaNYL PF VIAL 100 MCG/2 ML VIAL IV PRN (20:45)
[2020-12-07] MEDS ORDERED: diphenhydrAMINE 50 MG/ML VIAL ONE (20:55)
[2020-12-07] MEDS ORDERED: ceFAZolin SODIUM IV Push 1 GM VIAL. IVP ONE (21:00)
[2020-12-07 23:00] VITALS: BP 132/78
--- NOTE | 2020-12-07 23:00 | NUR ---
The patient, UMA SEGAL, 60 y/o, F admitted by RICH ROJO MD, was given written information regarding hospital policies, unit procedures and contact persons. RN received report from Yuliana MCGINNIS in the ED at 2230, patient was then transported from the ED to room 430 via gurney at 2300. RN performed a head to toe assessment at that time, VSS, afebrile, and pain reported a 5/10 at that time. Bed is in lowest locked position and the call light is within reach. Valuables were checked and left in the room with the patient. RN will continue to monitor the patient closely.
[2020-12-08] MEDS ORDERED: CEPH750C9 PO (02:07)
[2020-12-08] MEDS ORDERED: IBUP-1007 PO (02:07)
[2020-12-08] MEDS ORDERED: ACET500T33 PO (02:07)
[2020-12-08] MEDS ORDERED: diphenhydrAMINE 50 MG/ML VIAL IVP SCH ×2 (02:30→20:45)
[2020-12-08 03:15] VITALS: BP 102/50
[2020-12-08 07:06] VITALS: BP 118/61
[2020-12-08] MEDS ORDERED: predniSONE 10 MG TABLET PO ONE (08:30)
[2020-12-08] MEDS ORDERED: PANTOPRAZOLE 40 MG TABLET.DR. PO SCH (08:30)
[2020-12-08] MEDS ORDERED: ACETAMINOPHEN 500 MG TABLET PO PRN (08:30)
--- NOTE | 2020-12-08 08:49 | PDOC ---
Provider Note Date of Service: DATE: 12/08/20 TIME: 08:47 Provider Note [id number] Justifications for Admission Other Justification RICH ROJO MD Dec 08, 2020 08:49
[2020-12-08] MEDS ORDERED: CETIRIZINE HCL 10 MG TABLET. PO SCH (09:00)
--- NOTE | 2020-12-08 09:12 | SSS ---
ADMIT DATE: 12/08/2020 TWENTY-THREE HOUR SUMMARY HOSPITAL SUMMARY: A 60-year-old who, about a week ago, had a laparoscopic ureteral surgery at another hospital and since then has had itching, swelling and discomfort in her wounds. She was seen by her surgeon and he felt she might have infection and she was started on Keflex, but she had increasing itching and pain. Examination of the wounds on the abdomen showed diffuse redness all around each wound with no tenderness or purulence and no sign of active cellulitis, more of an allergic reaction, perhaps to the glue or subcutaneous sutures. CBC, chemistry profile, and CT scan of the abdomen were unremarkable except for a stent in the left ureter, consistent with intraoperative placement. She was given IV Solu-Medrol x1 dose, then oral dose of prednisone this morning and she will be followed as an outpatient at this point. FINAL DIAGNOSIS: Allergic reaction to tissue glue from surgical wounds. OPERATIONS, PROCEDURES, COMPLICATIONS AND CONSULTATIONS: None. DISPOSITION: She will take prednisone tapering over the next 7 days, topical Benadryl cream q.i.d. to each wound, Claritin or Zyrtec 20 mg daily until seen by her surgeon. Reaction is to subside as the glue leaves the wounds, but she was told not to use topical steroids, which would delay wound healing. PROGNOSIS: Good. RICH ROJO MD DR: SHANON/blue JOB#: [id number] / [id number]
--- NOTE | 2020-12-08 10:12 | NUR ---
Patient discharged home today with self care and ambulatory. Patient is stable, IV removed, and discharge instruction given to patient. Patient verbalized understanding of followup and discharge instruction.
[2020-12-08] MEDS ORDERED: DIPH25CA58 PO (16:33)
[2020-12-08] MEDS ORDERED: PRED20TA PO (16:33)
[2020-12-12] MEDS ORDERED: OXYC5CAP PO (07:31)
== END 2020-12-08 10:16 | disposition home or self-care (01) ==
LOC: ER 16:48 → INTOOBSV 20:30 → 4 NORTH 20:30
PROVIDERS: ADMIT Family Medicine; ATTEND Family Medicine
DX: U07.1 COVID-19 (principal); L03.311 Cellulitis of abdominal wall; E78.00 Pure hypercholesterolemia, unspecified; Z90.49 Acquired absence of other specified parts of digestive tract; Z98.891 History of uterine scar from previous surgery; Z98.890 Other specified postprocedural states; Z79.899 Other long term (current) drug therapy
CPT/HCPCS: 36415; 74177; 80053; 81001; 83605; 85025; 87040; 87086; 96361; 96374; 96375; 96376; 99285; G0378; J0690; J1200; J2930; J3010; J7030; J7512; Q9967; G0379

== ENCOUNTER → 2020-12-08 | Outpatient (CLI) | payer OTHER ==
[~2020-12-08] MED LIST changes: +ACET500T33 PO; +CEPH750C9 PO; +DIPH25CA58 PO; +IBUP-1007 PO; +OXYC5CAP PO; +PRED20TA PO
[2020-12-08 07:06] VITALS: BP 118/61
--- NOTE | 2020-12-11 09:05 | NUR ---
IP: Informed pt of positive COVID test and that I will notify Dr. Mandujano office. pt states was positive in Jul., Sep., with a negative from [facility] a couple weeks ago. Informed her to wait for instructions from Dr. Mandujano's office.
--- NOTE | 2020-12-11 09:13 | NUR ---
IP: Left a voicemail for Dr. Mandujano's cataloging assistant with pt COVID results.
== END ==
LOC: LAB 10:40
PROVIDERS: ATTEND Orthopaedic Surgery
DX: Z01.812 Encounter for preprocedural laboratory examination (principal); U07.1 COVID-19; M75.01 Adhesive capsulitis of right shoulder
CPT/HCPCS: U0003

== ENCOUNTER 2020-12-12 06:05 | Day surgery (SDC) | payer OTHER ==
[~2020-12-12] VITALS: Ht 157.5 cm; Wt 80.7 kg
[~2020-12-12 06:05] MED LIST changes: -OXYC5CAP PO
[2020-12-12] MEDS ORDERED: ONDANSETRON PF 4 MG/2 ML VIAL. IV PRN (07:00)
[2020-12-12] MEDS ORDERED: fentaNYL PF VIAL 100 MCG/2 ML VIAL IV PRN (07:00)
[2020-12-12] MEDS ORDERED: HYDROmorphone 2 MG/ML VIAL IV PRN (07:00)
[2020-12-12] MEDS ORDERED: PROCHLORPERAZINE 10 MG/2 ML VIAL. IV PRN (07:00)
[2020-12-12] MEDS ORDERED: IV RINGERS,LACTATED 1000ML 1,000 ML IV SCH (07:00)
[2020-12-12] MEDS ORDERED: ceFAZolin 2GM PREMIX 2 GM/50 ML BAG IV ONE (07:00)
[2020-12-12] MEDS ORDERED: LIDOCAINE 1% PF 2 ML VIAL. ID PRN (07:00)
[2020-12-12] MEDS ORDERED: MORPHINE SULFATE 2 MG/ML VIAL. IV PRN (07:00)
[2020-12-12] MEDS ORDERED: LIDOCAINE 2% Multi-Dose 20 ML VIAL. IJ ONE (07:04)
[2020-12-12] MEDS ORDERED: methylPREDNISolone ACETATE 80 MG/ML VIAL. INJ ONE (07:04)
[2020-12-12] MEDS ORDERED: DEXAMETHASONE SOD PHOS 4 MG/ML VIAL ONE (07:15)
[2020-12-12] MEDS ORDERED: PROPOFOL 10 MG/ML (20ML) VIAL. IV ONE (07:15)
[2020-12-12] MEDS ORDERED: KETOROLAC 30 MG/ML VIAL. ONE (07:15)
--- NOTE | 2020-12-12 07:24 | DISCH ---
DISCHARGE INSTRUCTIONS Condition on Discharge Condition on Discharge: Stable Activity After Discharge Activity Instructions for Disc: Activity as tolerated, Other, see below (Im mediate aggressive active and passive range of motion of right shoulder no activity restrictions whatsoever, no use of sling or other support) Exercise Instruction after Dis: Progress as tolerated Weight Bearing Status after Di: As tolerated Diet after Discharge Diet after Discharge: Regular Additional Diet Restrictions: resume home diet Wound Incision Care Wound/Incision Care: Ice to area for comfort Community/Resources/Services Services at Discharge: PT EVALUATE & TREAT (Immediate aggressive range of motion active and passive no restrictions, start PT tomorrow) Contacting the after DC Call your doctor for: Concerns you may have Follow-Up Follow up with: Dr. Mandujano 7 to 10 days JASPER MANDUJANO MD Dec 12, 2020 07:24
[2020-12-12] MEDS ORDERED: OXYC5CAP PO (07:31)
--- NOTE | 2020-12-12 07:37 | PDOC4 ---
Operative Note Operative Note Date of procedure: 12/12/2020 Preoperative diagnosis: Adhesive capsulitis right shoulder Postoperative diagnosis: Same with lacking 55 degrees terminal elevation about 45 degrees terminal external rotation in abduction and about 20 degrees terminal internal rotation right shoulder compared to normal left shoulder motion Operative procedure: Manipulation of right shoulder under anesthesia and glenohumeral joint injection Surgeon: Delbert Anesthesia: Deep propofol sedation provided by anesthesia Complications: None Estimated blood loss: None Operative indications: Patient has had adhesive capsulitis of the right shoulder unresponsive to physical therapy and home stretching and is quite painful and limited. We had described the natural course of adhesive capsulitis and the possibility of observation. She has failed ongoing attempts at stretching and finally I had offered possibility of manipulation under anesthesia with physical therapy to follow to break up the scar tissue and allow her to maintain the motion. We described the risks of sedation and the possibility of pain and some bleeding in the shoulder capsule from the manipulation and the necessity of postoperative physical therapy to maintain the motion otherwise she has a high recurrence of stiffness. She agrees to proceed with surgical evaluation and treatment. Operative text: Patient was identified procedure verified. After adequate amounts of deep propofol sedation were provided by anesthesia, a timeout was performed identifying the right shoulder as the operative shoulder and the right shoulder was examined under anesthesia found to lack about 55 degrees terminal elevation 45 degrees terminal external rotation in abduction and terminal 20 degrees of internal rotation. The shoulder was manipulated with audible and palpable release of tissue and she regained full elevation external and internal rotation without any instability. Right shoulder was then injected from an anterior approach to the glenohumeral joint with 1 cc 80 mg/mL Depo-Medrol and 3 cc of 2% lidocaine with epinephrine. Patient tolerated the procedure well and was discharged in stable condition and arranged for immediate physical therapy for aggressive passive active range of motion and no restrictions starting tomorrow JASPER BLAKE MD Dec 12, 2020 07:37
[2020-12-12] MEDS ORDERED: fentaNYL PF VIAL 100 MCG/2 ML VIAL ONE (07:38)
[2020-12-12] MEDS: fentaNYL PF VIAL 100 MCG/2 ML VIAL IV PRN ×2 (07:49→07:57)
[2020-12-12 08:40] VITALS: BP 158/88
== END 2020-12-12 08:48 | disposition home or self-care (01) ==
LOC: SURG 06:05
PROVIDERS: ATTEND Orthopaedic Surgery
DX: M75.01 Adhesive capsulitis of right shoulder (principal); E78.00 Pure hypercholesterolemia, unspecified; M19.90 Unspecified osteoarthritis, unspecified site; Z90.49 Acquired absence of other specified parts of digestive tract; Z98.890 Other specified postprocedural states; Z79.899 Other long term (current) drug therapy; Z72.89 Other problems related to lifestyle; Z88.2 Allergy status to sulfonamides; Z88.8 Allergy status to other drugs, medicaments and biological substances
CPT/HCPCS: 20610; 23700; J0690; J1040; J1100; J1885; J2704; J3010

== ENCOUNTER → 2021-01-17 | Outpatient (CLI) | payer OTHER ==
[~2021-01-17] MED LIST changes: +FUROSEMIDE 40 MG/4 ML VIAL. IVP ONE; +OXYC5CAP PO
--- NOTE | 2021-01-17 16:58 | RAD ---
Renal scan with Lasix 01/17/2021 CLINICAL HISTORY: Hydronephrosis. TECHNIQUE: After the intravenous administration of 5.5 mCi of Technetium 99m MAG3, imaging of both ki dneys and the urinary bladder was performed using the gamma camera for 30 minutes. 40 mg of Lasix wer e administered at 10 minutes into this study. Time activity curves for both kidneys were generated. FINDINGS: Comparison is made to the patient's CT scan of the abdomen and pelvis dated 12/07/2020. Normal perfusion, uptake and excretion of the radionuclide by both kidneys is seen. The split renal f unction is as follows: Right kidney 55.4 percent, left kidney 44.6 percent. Activity is seen within b oth intrarenal collecting systems and both ureters on the static images. Gradual accumulation of acti vity within the urinary bladder is seen during the coarse of this study. The right time activity curve is within normal limits. The left time activity curve is consistent wit h a dilated but nonobstructed system. The time of Max is 3 minutes on the right and 17 minutes on the left. The time of half Max is 15.7 minutes on the right and 25.7 minutes on the left. The time from Max to half Max is 12.7 minutes on the right and 8.72 minutes on the left. IMPRESSION: 1. There is slight discrepancy in the split renal function, right greater than left. 2. Findings are seen consistent with a dilated but nonobstructed left collecting system. Electronically signed by: Darrell Marina MD (01/17/2021 4:55 PM) [id number]
== END | disposition home or self-care (01) ==
LOC: NM 09:50
PROVIDERS: ATTEND Urology
DX: N13.39 Other hydronephrosis (principal); Q62.11 Congenital occlusion of ureteropelvic junction; E78.00 Pure hypercholesterolemia, unspecified; M19.90 Unspecified osteoarthritis, unspecified site; Z79.899 Other long term (current) drug therapy; Z72.89 Other problems related to lifestyle; Z98.890 Other specified postprocedural states
CPT/HCPCS: 78708; 96374; A9562; J1940; 96375

== ENCOUNTER → 2021-05-31 | Outpatient (CLI) | payer OTHER ==
[~2021-05-31] MED LIST changes: -FUROSEMIDE 40 MG/4 ML VIAL. IVP ONE
--- NOTE | 2021-05-31 11:47 | RAD ---
MG BILAT SCREEN+ASCENCION 05/31/2021 9:10 AM INDICATION: Asymptomatic screening mammogram. COMPARISON: 08/12/2019, 07/08/2018 TECHNIQUE: 3D tomosynthesis was performed in CC and MLO projections. 2D views were obtained from the 3D data. CAD was utilized as needed. FINDINGS: Breast density: Category B: There are scattered areas of fibroglandular density. Right breast: There are no suspicious microcalcifications, masses or areas of architectural distortio n. Left breast: There are no suspicious microcalcifications, masses or areas of architectural distortion . Bilateral mammogram is compared to prior examinations appears unchanged. IMPRESSION: Negative bilateral mammogram. BI-RADS category: 1; Negative Recommendations: Recommend annual screening mammography in one year. Electronically signed by: Keila White MD (05/31/2021 11:45 AM) [id number]
== END ==
LOC: MAMMO 08:58
PROVIDERS: ATTEND Family Medicine
DX: Z12.31 Encounter for screening mammogram for malignant neoplasm of breast (principal)
CPT/HCPCS: 77063; 77067

== ENCOUNTER → 2021-08-02 | Outpatient (CLI) | payer OTHER ==
--- NOTE | 2021-08-02 14:17 | RAD ---
Renal ultrasound 08/02/2021 INDICATION: Follow-up, left hydronephrosis. COMPARISON STUDY: CT abdomen and pelvis December 07, 2020 Discussion: Ultrasound evaluation of the kidneys was performed. Static images are submitted to PACS. Right kidney measures 10.0 x 4.5 x 4.3 cm. Left kidney measures 10.1 x 4.4 x 4.8 cm. No hydronephrosi s is seen involving either kidney. No evidence of nephrolithiasis is identified. No focal lesions are seen. Mild renal cortical thinning appears be present bilaterally. The bladder is unremarkable in ap pearance. Bilateral ureteral jets noted. IMPRESSION: Mild renal cortical thinning. Otherwise unremarkable sonographic appearance of the kidney s without evidence of hydronephrosis Electronically signed by: Duong Sherman MD (08/02/2021 2:15 PM) [id number]
== END ==
LOC: US 13:44
PROVIDERS: ATTEND Urology
DX: N13.39 Other hydronephrosis (principal); Q62.11 Congenital occlusion of ureteropelvic junction
CPT/HCPCS: 76770

== ENCOUNTER → 2021-09-10 | Outpatient (CLI) | payer OTHER ==
[2021-09-10 09:21] LABS: BASO # 0.1 x10^3/uL (0.0-0.2); BASO % 1 % (0-3); EOS # 0.1 x10^3/uL (0.0-0.7); EOS % 2 % (0-3); HEMATOCRIT 40.4 % (36.0-47.0); HEMOGLOBIN 13.5 g/dL (12.0-15.5); LYMPH # 2.3 x10^3/uL (1.0-4.8); LYMPH % 34 % (24-48); MEAN CORPUSCULAR HEMOGLOBIN 31 pg (25-35); MEAN CORPUSCULAR HGB CONC 33 g/dL (31-37); MEAN CORPUSCULAR VOLUME 92 fL (79-100); MONO # 0.4 x10^3/uL (0.0-1.1); MONO % 6 % (0-9); NEUT # 4.1 x10^3/uL (1.8-7.7); NEUT % 59 % (31-73); PLATELET COUNT 330 x10^3/uL (140-400); RED BLOOD COUNT 4.38 x10^6/uL (3.50-5.40); RED CELL DISTRIBUTION WIDTH 12.6 % (11.5-14.5)
[2021-09-10 09:55] LABS: ALBUMIN 3.6 g/dL (3.4-5.0); ALBUMIN/GLOBULIN RATIO 1.1 (1.0-1.7); CREATININE 0.9 mg/dL (0.6-1.0); GFR 63.7; POTASSIUM 4.8 mmol/L (3.5-5.1); TOTAL BILIRUBIN 0.5 mg/dL (0.2-1.0); TOTAL PROTEIN 6.9 g/dL (6.4-8.2)
[2021-09-10 09:59] LABS: CHOLESTEROL/HDL RATIO 4.5
== END ==
LOC: LAB 08:48
PROVIDERS: ATTEND Family Medicine
DX: Z13.1 Encounter for screening for diabetes mellitus (principal); E78.2 Mixed hyperlipidemia
CPT/HCPCS: 36415; 80053; 80061; 85025